=== PATIENT | female | born 1960 | race Caucasian/White ===

== ENCOUNTER → 2016-12-30 | Outpatient (CLI) | payer SELFPAY ==
[2013-04-18 12:20] VITALS: BP 149/60
--- NOTE | 2016-12-30 16:47 | MG ---
Examination: Bilateral screening mammogram. Clinical history: Routine screening. Technique: Digital CC and MLO views of both breasts were obtained. Computer aided detection analysis was performed and used during the interpretation. Comparison: 01/20/2015, 01/21/2014. Findings: The breasts are composed of scattered fibroglandular densities. No suspicious mass, area of architectural distortion or suspicious cluster of microcalcifications is noted. Impression: 1. No mammographic evidence of malignancy. BI-RADS category 1-negative. Recommend routine annual screening mammogram. Diagnostic CAD was utilized and reviewed. * 0 (ZERO) - ASSESSMENT INCOMPLETE; ADDITIONAL IMAGING IS NEEDED. * 0C - ASSESSMENT INCOMPLETE, NEEDS ADDITIONAL IMAGING EVALUATION AND/OR PRIOR MAMMOGRAMS FOR COMPARI SON. * 1/1 (ONE) - NEGATIVE. * 2/II (TWO) - BENIGN FINDINGS. * 3/III (THREE) - PROBABLY BENIGN FINDING; SHORT INTERVAL FOLLOW-UP SUGGESTED. * 4/IV (FOUR) - SUSPICIOUS ABNORMALITY; BIOPSY SHOULD BE CONSIDERED. * 5/V - HIGHLY SUSPICIOUS OF MALIGNANCY; BIOPSY SHOULD BE PERFORMED. * 6/IV - KNOWN BIOPSY PROVEN MALIGNANCY-APPROPRIATE ACTION SHOULD BE TAKEN. A NEGATIVE X-RAY REPORT SHOULD NOT DELAY BIOPSY IF A DOMINANT OR CLINICALLY SUSPICIOUS MASS IS PRESENT; 4 TO 8 PERCENT OF CANCERS ARE NOT IDENTIFIED BY X-RAY. A NEGATIVE REPORT MAY REINFORCE THE CLINICAL IMPRESSION. ADENOSIS AND DENSE BREASTS MAY OBSCURE AN UNDERLYING NEOPLASM. Reported By:
== END ==
LOC: RAD 10:52
PROVIDERS: ATTEND Specialist
DX: Z12.31 Encounter for screening mammogram for malignant neoplasm of breast (principal)
CPT/HCPCS: 77067

== ENCOUNTER 2020-01-18 10:05 | Inpatient (IN) ==
[2020-01-18 10:26] VITALS: BMI 41.0
[2020-01-18] MEDS ORDERED: NS 1000 ML 1,000 ML IV ONE (10:42)
[2020-01-18] MEDS ORDERED: ZOFRAN INJ 4 MG VIAL IVP ONE (10:42)
--- NOTE | 2020-01-18 10:42 | DR.GENAD ---
HPI Time Seen Time Seen by Provider: 01/18/20 10:37 PCP Primary Care Physician: BEBA CASH Complaint/Symptoms Chief Complaint Doctors Comments: PATIENT COMPLAINS OF ACUTE ONSET OF NONPRODUCTIVE COUGH X 4 DAYS, ONSET OF EMESIS X 3 EPISODES AT 2AM TODAY. HAS ASSOCIATED FEVER, CHILLS, GENERALIZED ACHES. HAS SLIGHT DYSURIA TODAY. DENIES CHEST PAIN, DYSPNEA, PALPITATIONS, DIAPHOREIS, ABDOMINAL PAIN, OR DIARRHEA. Chief Complaint:: STARTED HAVING N/V AT 0200 THIS MORNING. CONT TO HAVE NAUSEA AT PRESENT. STATES SHE HAS HAD A COUGH SINCE TUESDAY Self Treatment fo Chief Complaint: CALLED HER PHARMACIST AND GOT OTC N/V/COUGH MED, BUT IT DID NOT HELP HER FEEL BETTER COVID-19 Coronavirus risk:travel/contact w/high risk person: No Has patient experienced Coronavirus symptoms: Yes Coronavirus symptoms experienced: Fever and Coughing Source History Provided: Patient Mode of Arrival Mode of Arrival: Wheelchair Timing Onset of Chief Complaint: 01/17/20 PMH PMH Past Medical History: Yes Past Medical History: Hypertension Past Medical History Comment: "HORMONES" Past Surgical History: Yes Past Surgical History Comment: "LEFT KNEE SURGERY", "PLATES IN RIGHT ANKLE" Family History History of Family Medical Conditions: Yes Family Medical History: Hypertension Social History Does patient currently use any type of tobacco product: No Type of Tobacco Use: None Does any household member use tobacco: No Alcohol Use: None Do you use any recreational Drugs:: No Lives With: Spouse Lives Where: Home Travel Risk Coronavirus risk:travel/contact w/high risk person: No Has patient experienced Coronavirus symptoms: Yes Coronavirus symptoms experienced: Fever and Coughing Infectious screening In the last 2 months have you had wt loss of >10#?: NO Have you had fever, night sweats or hemotysis?: No Have you traveled outside the country in the last 6 months?: No Isolation: Droplet ROS Review of Systems Constitutional: Chills, Fever and Malaise Respiratoy: Non-Productive Cough and Dry Cough Gastrointestinal/Abdominal: Nausea and Vomiting (X 3 EPISODES) Genitourinary: Dysuria PE Vital Signs Vitals: Temperature 99.5 F Pulse Rate 92 Respiratory Rate 33 Blood Pressure [Right Arm] 149/60 Blood Pressure 172/77 O2 Sat by Pulse Oximetry 94 General Limitations: No Limitations General Appearance: Alert and In No Apparent Distress Head Head Exam: Normal Inspection Eyes Eye exam: Normal Appearance ENT ENT Exam: Normal Exam Chest Chest Inspection: Normal Inspection and Symmetric Chest Wall Rise Respiratory Respiratory Exam: Normal Lung Sounds Bilat (moderate tachypnea upon arrival, no accessory muscle use, labored breathing, audible wheezes) Respiratory Exam: Bilateral: Clear to Auscultation Cardiovascular Cardiovascular Exam: Regular Rate and Tachycardia Abdominal Exam Abdominal Exam: Normal Inspection, Normal Bowel Sounds and Soft Abdominal Tenderness: RUQ Extremities Extremities Exam: Normal Inspection Back Back Exam: Normal Inspection and Full ROM Neurologic Neurological Exam: Alert, Oriented X3 and CN II-XII Intact Psychiatric Psychiatric Exam: Normal Affect and Normal Mood Skin Skin Exam: Warm and Dry COURSE Consultation Called: 12:23 Call Returned: 12:25 Consultation Comments: DISCUSSED WITH DR AVINA AT 1225 FOR INPATIENT ADMIT Education/Counseling Education/Counseling: Counseling (FOR INPATIENT TREATMENT OF COVID PNEUMONIA) ROR Labs Reviewed Result Diagrams: 01/18/20 10:52 01/18/20 10:52 Laboratory: WBC 10.9 X10^3/uL (3.6-10.0) H 01/18/20 10:52 RBC 4.56 X10^6/uL (3.5-5.4) 01/18/20 10:52 Hgb 13.3 g/dL (12.0-16.0) 01/18/20 10:52 Hct 40.5 % (36.0-47.0) 01/18/20 10:52 MCV 88.7 fL (80.0-100.0) 01/18/20 10:52 MCH 29.1 pg (27.0-34.0) 01/18/20 10:52 MCHC 32.8 g/dL (33.0-35.0) L 01/18/20 10:52 RDW 13.8 % (11.6-16.5) 01/18/20 10:52 Plt Count 213 X10^3/uL (150.0-450.0) 01/18/20 10:52 MPV 10.1 fL (7.4-11.0) 01/18/20 10:52 Neut % (Auto) 87.6 % (42.0-75.0) H 01/18/20 10:52 Lymph % (Auto) 4.9 % (21.0-51.0) L 01/18/20 10:52 [place] % (Auto) 7.1 % (0.0-13.0) 01/18/20 10:52 Eos % (Auto) 0.0 % (0.9-2.9) L 01/18/20 10:52 Baso % (Auto) 0.4 % (0.2-1.0) 01/18/20 10:52 Neut # (Auto) 9.6 x10^3/uL (2.2-4.8) H 01/18/20 10:52 Lymph # (Auto) 0.5 X10^3/uL (1.3-2.9) L 01/18/20 10:52 [place] # (Auto) 0.8 x10^3/uL (0.3-0.8) 01/18/20 10:52 Eos # (Auto) 0.0 x10^3/uL (0.0-0.2) 01/18/20 10:52 Baso # (Auto) 0.0 X10^3/uL (0.0-0.1) 01/18/20 10:52 Absolute Nucleated RBC 0.0 /100WBC 01/18/20 10:52 Sodium 138 mmol/L (136-145) 01/18/20 10:52 Corrected Sodium TNP 01/18/20 10:52 Potassium 3.5 mmol/L (3.5-5.1) 01/18/20 10:52 Chloride 104 mmol/L (98-107) 01/18/20 10:52 Carbon Dioxide 25.2 mmol/L (21-32) 01/18/20 10:52 BUN 10 mg/dL (7-18) 01/18/20 10:52 Creatinine 0.66 mg/dL (0.55-1.02) 01/18/20 10:52 Est GFR (MDRD) Af Amer > 60 (>60) 01/18/20 10:52 Est GFR (MDRD) Non-Af > 60 (>60) 01/18/20 10:52 Glucose 98 mg/dL (65-99) 01/18/20 10:52 Calcium 8.3 mg/dL (8.5-10.1) L 01/18/20 10:52 Corrected Calcium 9.3 mg/dL (8.5-10.1) 01/18/20 10:52 Total Bilirubin 0.40 mg/dL (0.2-1.0) 01/18/20 10:52 AST 47 Units/L (15-37) H 01/18/20 10:52 ALT 73 Units/L (12-78) 01/18/20 10:52 Alkaline Phosphatase 114 Units/L (46-116) 01/18/20 10:52 Total Protein 6.3 g/dL (6.4-8.2) L 01/18/20 10:52 Albumin 2.8 g/dL (3.4-5.0) L 01/18/20 10:52 Globulin 3.5 g/dL (2.5-4.5) 01/18/20 10:52 Albumin/Globulin Ratio 0.8 Ratio (1.1-2.1) L 01/18/20 10:52 Influenza Type A (PCR) Negative (NEGATIVE) 01/18/20 10:56 Influenza Type B (PCR) Negative (NEGATIVE) 01/18/20 10:56 SARS CoV-2 RNA Rapid NATY Positive (NEGATIVE) A 01/18/20 10:56 XRAY XRAY Interpreted by: Radiologist X-ray Results: HISTORY COUGH, FEVER, NAUSEA, VOMITING STUDY CHEST, 1 VIEW COMPARISON None FINDINGS The trachea is midline. The cardiac silhouette is unremarkable. Patchy bila teral airspace opacities. The bony thorax is unremarkable. IMPRESSION Patchy bilateral airspace opacities concerning for pneumonia. Recommend follow- up to resolution. Electronically signed by: OSIEL SMITH (Jan 18, 2020 11:12:02) Opioid Opioid Risk Tool Age (Lokesh box if 16-45): No History of Preadolescent Sexual Abuse: No Total: 0 Total Score Risk Category: Low Risk Copyright: Rocky ROBERTO predicting aberrant behaviors Instructions Forms: Precautions for COVID19 Patient Portal Social Distancing
[2020-01-18] MEDS ORDERED: NS 1000 ML 1,000 ML ONE (10:55)
[2020-01-18] MEDS ORDERED: ZOFRAN INJ 4 MG VIAL ONE (10:55)
--- NOTE | 2020-01-18 11:13 | RAD ---
HISTORYCOUGH, FEVER, NAUSEA, VOMITINGSTUDYCHEST, 1 VIEWCOMPARISONNoneFINDINGSThe trachea is midline. The cardiac silhouette is unremarkable. Patchy bilateral airspace opacities. The bony thorax is unremarkable.IMPRESSIONPatchy bilateral airspace opacities concerning for pneumonia. Recommend follow-up to resolution.Electronically signed by: OSIEL SMITH (Jan 18, 2020 11:12:02)
[2020-01-18 11:33] LABS: BASOPHILS % (AUTO) 0.4 % (0.2-1.0); HEMATOCRIT 40.5 % (36.0-47.0); HEMOGLOBIN 13.3 g/dL (12.0-16.0); LYMPHOCYTES # (AUTO) 0.5 X10^3/uL (1.3-2.9); LYMPHOCYTES % (AUTO) 4.9 % (21.0-51.0); MEAN CORPUSCULAR HEMOGLOBIN 29.1 pg (27.0-34.0); MEAN CORPUSCULAR HGB CONC 32.8 g/dL (33.0-35.0); MEAN CORPUSCULAR VOLUME 88.7 fL (80.0-100.0); MEAN PLATELET VOLUME 10.1 fL (7.4-11.0); MONOCYTES # (AUTO) 0.8 x10^3/uL (0.3-0.8); MONOCYTES % (AUTO) 7.1 % (0.0-13.0); NEUTROPHILS # (AUTO) 9.6 x10^3/uL (2.2-4.8); NEUTROPHILS % (AUTO) 87.6 % (42.0-75.0); PLATELET COUNT 213 X10^3/uL (150.0-450.0); RED BLOOD COUNT 4.56 X10^6/uL (3.5-5.4); RED CELL DISTRIBUTION WIDTH 13.8 % (11.6-16.5); WHITE BLOOD COUNT 10.9 X10^3/uL (3.6-10.0)
[2020-01-18 11:52] LABS: ALANINE AMINOTRANSFERASE 73 Units/L (12-78); ALBUMIN 2.8 g/dL (3.4-5.0); ALKALINE PHOSPHATASE 114 Units/L (46-116); ASPARTATE AMINO TRANSFERASE 47 Units/L (15-37); BLOOD UREA NITROGEN 10 mg/dL (7-18); CALCIUM 8.3 mg/dL (8.5-10.1); CARBON DIOXIDE 25.2 mmol/L (21-32); CHLORIDE 104 mmol/L (98-107); COR CA(FOR HYPOALB) 9.3 mg/dL (8.5-10.1); CREATININE 0.66 mg/dL (0.55-1.02); SODIUM 138 mmol/L (136-145); TOTAL PROTEIN 6.3 g/dL (6.4-8.2); eGFR NON BLACK RACES > 60 (>60)
[2020-01-18] MEDS ORDERED: ZITHROMAX INJ 500 MG VIAL 500 MG in D5W 250 ML IV 250 ML IV ONE (12:12)
[2020-01-18] MEDS ORDERED: ZITHROMAX INJ 500 MG VIAL IV ONE (12:15)
[2020-01-18] MEDS ORDERED: LABETALOL HCL IVP ONE (12:17)
[2020-01-18] MEDS ORDERED: NORMODYNE INJ 20 MG VIAL ONE (12:38)
[2020-01-18] MEDS ORDERED: REMDESIVIR 200 MG in NS 250 ML IV 250 ML IV SCH ×2 (12:46→17:00)
[2020-01-18 12:59] LABS: ABG ALLEN TEST POS; ABG BASE EXCESS 0.3 mmol/L (-2.0-2.0); ABG HCO3 23.1 mmol/L (22-26)
[2020-01-18] MEDS ORDERED: ZITHROMAX INJ 500 MG VIAL 500 MG in D5W 250 ML IV 250 ML IV SCH (14:20)
[2020-01-18] MEDS ORDERED: ZOSYN VIAL 3.375 GRAMS 3.375 G in NS 100 ML IV + SPIKE MINIBAG* 100 ML IV SCH (14:25)
[2020-01-18] MEDS: NS 1000 ML 1,000 ML IV SCH (15:24)
[2020-01-18] MEDS ORDERED: PROVENTIL NEB TX 0.083% 2.5MG/ 3ML NEB PRN (16:18)
[2020-01-18] MEDS: ZOSYN VIAL 3.375 GRAMS 3.375 G in NS 50 ML IV + SPIKE MINIBAG* 50 ML IV SCH ×2 (16:19→22:14)
[2020-01-18] MEDS ORDERED: REMDESIVIR IV ONE ×2 (16:23→16:32)
[2020-01-18] MEDS ORDERED: NS 250 ML IV 250 ML IV ONE (16:25)
[2020-01-18] MEDS: ASCORBIC ACID INJ MULTI-DOSE VIAL 1,500 MG in NS 100 ML IV 100 ML IV SCH ×2 (16:38→20:34)
[2020-01-18] MEDS: REQUIP PO SCH ×2 (16:38→22:13)
[2020-01-18] MEDS ORDERED: DUONEB 0.5 MG/3 MG (3 mL) NEB ONE (16:57)
[2020-01-18] MEDS: DUONEB 0.5 MG/3 MG (3 mL) NEB SCH ×2 (17:09→21:33)
[2020-01-18 17:15] LABS: RSV AG DETECTION NEGATIVE (NEGATIVE)
[2020-01-18] MEDS ORDERED: NEURONTIN CAP 300 MG ONE (20:01)
[2020-01-18] MEDS ORDERED: LOPRESSOR TAB 50 MG ONE (20:01)
[2020-01-18] MEDS ORDERED: COZAAR ONE (20:01)
[2020-01-18] MEDS ORDERED: MICRO K EXTEN CAP 10 MEQ PO ONE (20:01)
[2020-01-18] MEDS ORDERED: ZINC SULFATE ONE (20:01)
[2020-01-18] MEDS ORDERED: SOLU-Medrol 40 MG VIAL ONE (20:02)
[2020-01-18] MEDS ORDERED: REMERON ONE (20:02)
[2020-01-18] MEDS ORDERED: LOVENOX INJ 30 MG SYR SC ONE (20:03)
[2020-01-18] MEDS: COZAAR PO SCH (20:29)
[2020-01-18] MEDS: LOPRESSOR TAB 50 MG PO SCH (20:30)
[2020-01-18] MEDS: MICRO K EXTEN CAP 10 MEQ PO SCH (20:31)
[2020-01-18] MEDS: NEURONTIN CAP 300 MG PO SCH (20:31)
[2020-01-18] MEDS: REMERON PO SCH (20:32)
[2020-01-18] MEDS: ZINC SULFATE PO SCH (20:32)
[2020-01-18] MEDS: LOVENOX INJ 30 MG SYR SC SCH (20:33)
[2020-01-18] MEDS: PULMICORT NEB TX 0.5 MG NEB SCH (21:33)
[2020-01-18] MEDS ORDERED: TYLENOL 325 MG TAB PO PRN (22:06)
--- NOTE | 2020-01-18 22:09 | DR.H&P ---
H&P History & Physical for Day of: H&P Date: 01/19/20 Chief Complaint Chief Complaint: Fever Shortness of breath Allergies Allergies Allergy/AdvReac Type Severity Reaction Status Date / Time No Known Drug Allergies Allergy Verified 01/18/20 13:08 History of Present Illness History of Present Illness: Pt is a 59 y/o f pmhx HTN admitted after having fever, fatigue, and shortness of breath for the past 2-3 days that has been gradually worsening. In the ED, she was found to be COVID-19 positive. Labs/imaging: Wbc 10.9, Hgb 13.3, Plt 213, Na 145, K 3.7, Cr 0.73, Glucose 149, AB.48/31/55/23/91% on RA. CRP 149.2, UA negative, Flu negative, COVID19 positive(01/17) CXR: Patchy bilateral airspace opacities concerning for pneumonia. Recommend follow-up to resolution. Will start patient on Remdesivir, Zosyn, Solumedrol 80mg Q8h, Bronchodilators, supplemental O2, IVF, I/S, RT support, pneumonia protocol. Resume home medications, continue to monitor and follow up labs/imaging in the morning. Past Medical History Past Medical History: Hypertension Family History Family Medical History: Diabetes Mellitus, Cancer, ID and Hypertension Social History Does patient currently use any type of tobacco product: No Have you used tobacco products in the last 12 months: No Type of Tobacco Use: None Does any household member use tobacco: No Alcohol Use: None Drug Use: None Medications Home Medications: No Known Drug Allergies Allergy (Verified 01/18/20 13:08) CONTINUE taking the following medications cyclobenzaprine 10 mg PO BID PRN 01/18/20 [History] diclofenac sodium 75 mg PO BID 01/18/20 [History] ibuprofen 800 mg PO DAILY PRN 01/18/20 [History] mirtazapine 7.5 mg PO HS 01/18/20 [History] oxybutynin chloride 5 mg PO HS 01/18/20 [History] ropinirole 0.5 mg PO TID 01/18/20 [History] Labs Result Diagrams: 01/19/20 04:35 01/19/20 04:35 Labs: Laboratory WBC 10.9 X10^3/uL (3.6-10.0) H 01/18/20 10:52 RBC 4.56 X10^6/uL (3.5-5.4) 01/18/20 10:52 Hgb 13.3 g/dL (12.0-16.0) 01/18/20 10:52 Hct 40.5 % (36.0-47.0) 01/18/20 10:52 MCV 88.7 fL (80.0-100.0) 01/18/20 10:52 MCH 29.1 pg (27.0-34.0) 01/18/20 10:52 MCHC 32.8 g/dL (33.0-35.0) L 01/18/20 10:52 RDW 13.8 % (11.6-16.5) 01/18/20 10:52 Plt Count 213 X10^3/uL (150.0-450.0) 01/18/20 10:52 MPV 10.1 fL (7.4-11.0) 01/18/20 10:52 Neut % (Auto) 87.6 % (42.0-75.0) H 01/18/20 10:52 Lymph % (Auto) 4.9 % (21.0-51.0) L 01/18/20 10:52 [place] % (Auto) 7.1 % (0.0-13.0) 01/18/20 10:52 Eos % (Auto) 0.0 % (0.9-2.9) L 01/18/20 10:52 Baso % (Auto) 0.4 % (0.2-1.0) 01/18/20 10:52 Neut # (Auto) 9.6 x10^3/uL (2.2-4.8) H 01/18/20 10:52 Lymph # (Auto) 0.5 X10^3/uL (1.3-2.9) L 01/18/20 10:52 [place] # (Auto) 0.8 x10^3/uL (0.3-0.8) 01/18/20 10:52 Eos # (Auto) 0.0 x10^3/uL (0.0-0.2) 01/18/20 10:52 Baso # (Auto) 0.0 X10^3/uL (0.0-0.1) 01/18/20 10:52 Absolute Nucleated RBC 0.0 /100WBC 01/18/20 10:52 PT 12.7 SECONDS (11.8-14.3) 01/18/20 12:51 INR Target Range - 01/18/20 12:51 INR 0.98 (0.8-1.3) 01/18/20 12:51 Sample Site Right radial 01/18/20 12:51 ABG pH 7.480 (7.35-7.45) H 01/18/20 12:51 ABG pCO2 31.0 mmHg (35.0-45.0) L 01/18/20 12:51 ABG pO2 55.0 mmHg (80.0-100.0) L 01/18/20 12:51 ABG HCO3 23.1 mmol/L (22-26) 01/18/20 12:51 ABG O2 Saturation 91.0 % (90-100) 01/18/20 12:51 ABG Base Excess 0.3 mmol/L (-2.0-2.0) 01/18/20 12:51 Test Pos 01/18/20 12:51 A-a Gradient 56.0 mmHg 01/18/20 12:51 FiO2 21.0 01/18/20 12:51 Blood Gas Comments Adam well aw 01/18/20 12:51 Sodium 138 mmol/L (136-145) 01/18/20 10:52 Corrected Sodium TNP 01/18/20 10:52 Potassium 3.5 mmol/L (3.5-5.1) 01/18/20 10:52 Chloride 104 mmol/L (98-107) 01/18/20 10:52 Carbon Dioxide 25.2 mmol/L (21-32) 01/18/20 10:52 BUN 10 mg/dL (7-18) 01/18/20 10:52 Creatinine 0.66 mg/dL (0.55-1.02) 01/18/20 10:52 Est GFR (MDRD) Af Amer > 60 (>60) 01/18/20 10:52 Est GFR (MDRD) Non-Af > 60 (>60) 01/18/20 10:52 Glucose 98 mg/dL (65-99) 01/18/20 10:52 Calcium 8.3 mg/dL (8.5-10.1) L 01/18/20 10:52 Corrected Calcium 9.3 mg/dL (8.5-10.1) 01/18/20 10:52 Total Bilirubin 0.40 mg/dL (0.2-1.0) 01/18/20 10:52 AST 47 Units/L (15-37) H 01/18/20 10:52 ALT 73 Units/L (12-78) 01/18/20 10:52 Alkaline Phosphatase 114 Units/L (46-116) 01/18/20 10:52 Troponin I < 0.02 ng/mL (0-1.5) 01/18/20 12:51 C-Reactive Protein 149.20 mg/L (0-3.0) H 01/18/20 12:51 Total Protein 6.3 g/dL (6.4-8.2) L 01/18/20 10:52 Albumin 2.8 g/dL (3.4-5.0) L 01/18/20 10:52 Globulin 3.5 g/dL (2.5-4.5) 01/18/20 10:52 Albumin/Globulin Ratio 0.8 Ratio (1.1-2.1) L 01/18/20 10:52 RSV Nasal Swab Negative (NEGATIVE) 01/18/20 16:30 Influenza Type A (PCR) Negative (NEGATIVE) 01/18/20 10:56 Influenza Type B (PCR) Negative (NEGATIVE) 01/18/20 10:56 SARS CoV-2 RNA Rapid NATY Positive (NEGATIVE) A 01/18/20 10:56 Review of Systems Constitutional: Fever, Chills and Weakness Eyes: No Symptoms Reported ENT: No Symptoms Reported Respiratory: Cough, Shortness of Breath and Wheezing Cardiovascular: No Symptoms Reported Gastrointestinal: No Symptoms Reported Genitourinary: No Symptoms Reported Musculoskeletal: No Symptoms Reported Skin: No Symptoms Reported Neurological: No Symptoms Reported Physical Exam Vital Signs: Temperature 100.2 F Pulse Rate 83 Respiratory Rate 23 Blood Pressure [Right Arm] 149/60 Blood Pressure 132/58 O2 Sat by Pulse Oximetry 95 Oriented: Normal Eyes: Normal Ear: Normal Nose: Normal Throat: Normal Respiratory: Diminished Throughout and Rales Throughout Cardiovascular: Normal : Normal Auscultation: Bowel Sounds: Normal Palpation: Normal Tenderness: Normal Skin: Normal Musculoskeletal: Normal Psychiatric: Normal Mood Description: Calm and Appropriate Affect: Normal Speech Pattern: Clear and Appropriate Assessment/Plan (1) Pneumonia due to COVID-19 virus: Status: Acute Plan: Remdesivir, Zosyn, Solumedrol, Bronchodilators, Supplemental O2. (2) Hypertension: Status: Chronic Review H&P Reviewed: Yes Patient was examined?: Yes
[2020-01-18] MEDS: SOLU-Medrol 125 MG VIAL IVP SCH (22:13)
[2020-01-19 01:01] LABS: BILIRUBIN,URINE NEGATIVE (NEGATIVE); BLOOD/HEMOGLOBIN,URINE NEGATIVE (NEGATIVE); GLUCOSE, URINE NEGATIVE (NEGATIVE); KETONES,URINE 2+ (NEGATIVE); LEUKOCYTE ESTERASE ,URINE NEGATIVE (NEGATIVE); NITRITES,URINE NEGATIVE (NEGATIVE); PROTEIN,URINE NEGATIVE (NEGATIVE); UROBILINOGEN,URINE NORMAL (NORMAL)
[2020-01-19 01:04] LABS: APPEARANCE,URINE CLEAR (CLEAR); COLOR,URINE YELLOW (YELLOW)
[2020-01-19] MEDS: ASCORBIC ACID INJ MULTI-DOSE VIAL 1,500 MG in NS 100 ML IV 100 ML IV SCH ×4 (02:56→21:30)
--- NOTE | 2020-01-19 04:16 | RAD ---
HISTORYCOVID-19STUDYCHEST, 1 [id number]/04/2020FINDINGSThe trachea is midline. The cardiac silhouette is stable.. Patchy bilateral airspace opacities, unchanged. No pneumothorax.. The bony thorax is unremarkable.IMPRESSIONPatchy bilateral airspace opacities a suggesting multifocal pneumonia.No significant change from previous 01/18/2020.Electronically signed by: Hunter Peña (Jan 19, 2020 04:14:55)
[2020-01-19 05:16] LABS: BASOPHILS % (AUTO) 0.1 % (0.2-1.0); HEMATOCRIT 40.3 % (36.0-47.0); LYMPHOCYTES # (AUTO) 0.3 X10^3/uL (1.3-2.9); LYMPHOCYTES % (AUTO) 7.1 % (21.0-51.0); MEAN CORPUSCULAR HGB CONC 32.4 g/dL (33.0-35.0); MEAN CORPUSCULAR VOLUME 89.6 fL (80.0-100.0); MEAN PLATELET VOLUME 9.8 fL (7.4-11.0); MONOCYTES # (AUTO) 0.1 x10^3/uL (0.3-0.8); MONOCYTES % (AUTO) 2.2 % (0.0-13.0); NEUTROPHILS # (AUTO) 4.1 x10^3/uL (2.2-4.8); NEUTROPHILS % (AUTO) 90.6 % (42.0-75.0); PLATELET COUNT 207 X10^3/uL (150.0-450.0); RED CELL DISTRIBUTION WIDTH 13.6 % (11.6-16.5); WHITE BLOOD COUNT 4.6 X10^3/uL (3.6-10.0)
[2020-01-19 05:25] LABS: ALANINE AMINOTRANSFERASE 65 Units/L (12-78); ALBUMIN 2.3 g/dL (3.4-5.0); ALKALINE PHOSPHATASE 127 Units/L (46-116); ASPARTATE AMINO TRANSFERASE 40 Units/L (15-37); BLOOD UREA NITROGEN 11 mg/dL (7-18); CALCIUM 7.9 mg/dL (8.5-10.1); CARBON DIOXIDE 23.3 mmol/L (21-32); CHLORIDE 110 mmol/L (98-107); COR CA(FOR HYPOALB) 9.3 mg/dL (8.5-10.1); COR NA(FOR HYPERGLY) 146 mmol/L (136-145); CREATININE 0.73 mg/dL (0.55-1.02); SODIUM 145 mmol/L (136-145); TOTAL PROTEIN 5.7 g/dL (6.4-8.2); eGFR NON BLACK RACES > 60 (>60)
[2020-01-19] MEDS: ZOSYN VIAL 3.375 GRAMS 3.375 G in NS 50 ML IV + SPIKE MINIBAG* 50 ML IV SCH ×3 (05:29→22:19)
[2020-01-19] MEDS: REQUIP PO SCH ×3 (05:29→21:30)
[2020-01-19] MEDS: SOLU-Medrol 125 MG VIAL IVP SCH ×3 (05:29→21:30)
[2020-01-19 05:43] LABS: BAND NEUTROPHILS % 2 % (0-10)
[2020-01-19 05:44] LABS: PLATELET MORPHOLOGY COMMENT NORMAL (NORMAL)
[2020-01-19] MEDS ORDERED: DECADRON TAB PO SCH (09:00)
[2020-01-19] MEDS ORDERED: VITAMIN D (1.25MG) PO SCH (09:00)
[2020-01-19] MEDS ORDERED: VITAMIN A PO SCH (09:00)
[2020-01-19] MEDS ORDERED: ZITHROMAX INJ 500 MG VIAL 250 MG in D5W 250 ML IV 250 ML IV SCH (09:00)
[2020-01-19] MEDS: DUONEB 0.5 MG/3 MG (3 mL) NEB SCH ×4 (09:05→21:33)
[2020-01-19] MEDS: PULMICORT NEB TX 0.5 MG NEB SCH ×2 (09:05→21:33)
[2020-01-19] MEDS: CELEXA PO SCH (09:06)
[2020-01-19] MEDS: COZAAR PO SCH ×2 (09:07→21:30)
[2020-01-19] MEDS: ESTRACE PO SCH (09:07)
[2020-01-19] MEDS: LOVENOX INJ 30 MG SYR SC SCH ×2 (09:08→21:30)
[2020-01-19] MEDS: LOPRESSOR TAB 50 MG PO SCH ×2 (09:08→21:30)
[2020-01-19] MEDS: PriLOSEC PO SCH (09:09)
[2020-01-19] MEDS: MICRO K EXTEN CAP 10 MEQ PO SCH ×2 (09:09→21:30)
[2020-01-19] MEDS: NORVASC TAB 10 MG PO SCH (09:09)
[2020-01-19] MEDS: REMDESIVIR 100 MG in NS 250 ML IV 250 ML IV SCH (09:10)
[2020-01-19] MEDS: ZINC SULFATE PO SCH ×2 (09:10→21:30)
[2020-01-19] MEDS: TRICOR TAB 160 MG PO SCH (09:10)
[2020-01-19] MEDS: PROVERA PO SCH (09:36)
[2020-01-19] MEDS ORDERED: ROBITUSSIN DM ONE (10:12)
[2020-01-19] MEDS ORDERED: ZOFRAN INJ 4 MG VIAL IVP PRN (10:25)
--- NOTE | 2020-01-19 10:57 | PCM.PROG ---
Progress Note Progress Note for Day of Date of Exam: 01/19/20 Subjective Subjective: Pt is a 59 y/o f pmhx HTN admitted for COVID-19 pneumonia (positive on 01/17). She reports feeling a little better this morning, still having a lot of cough that causes her to be short of breath. Labs/imaging: Wbc 4.6, Hgb 13, Plt 207, Na 145, K 3.7, Cr 0.73, Glucose 149, CRP 149>179. CXR: Patchy bilateral airspace opacities a suggesting multifocal pneumonia. Treatment course includes: Remdesivir, Zosyn, Solumedrol 80mg Q8h, Bronchodilators, supplemental O2, IVF, I/S, RT support, pneumonia protocol. She is currently on 2L nc. Will order convalescent plasma. Continue treatment plan, monitor and follow up labs/imaging in the morning. Past Medical Family Social History Past Med/Fam/Surg Hx: No changes since H&P Allergies: Allergies No Known Drug Allergies Allergy (Verified 01/18/20 13:08) Review of Systems ROS: No change since H&P Vital Signs and I&O's Vital Signs: Temperature 97.5 F Pulse Rate 86 Respiratory Rate 25 Blood Pressure [Right Arm] 149/60 Blood Pressure 147/67 O2 Sat by Pulse Oximetry 96 Intake and Output: Intake & Output 01/16/20 01/17/20 01/18/20 01/19/20 23:59 23:59 23:59 23:59 Intake Total 1444 / 1444 447 / 447 Output Total 500 / 500 Balance 1444 / 1444 -53 / -53 Physical Exam Oriented: Normal Eyes: Normal Ear: Normal Nose: Normal Throat: Normal Respiratory: Diminished Cardiovascular: Normal : Normal Auscultation: Bowel Sounds: Normal Tenderness: Normal Skin: Normal Musculoskeletal: Normal Psychiatric: Normal Mood Description: Calm and Appropriate Affect: Normal Speech Pattern: Clear and Appropriate Laboratory and Diagnostics Result Diagrams: 01/19/20 04:35 01/19/20 04:35 Labs: Laboratory WBC 4.6 X10^3/uL (3.6-10.0) 01/19/20 04:35 RBC 4.50 X10^6/uL (3.5-5.4) 01/19/20 04:35 Hgb 13.0 g/dL (12.0-16.0) 01/19/20 04:35 Hct 40.3 % (36.0-47.0) 01/19/20 04:35 MCV 89.6 fL (80.0-100.0) 01/19/20 04:35 MCH 29.0 pg (27.0-34.0) 01/19/20 04:35 MCHC 32.4 g/dL (33.0-35.0) L 01/19/20 04:35 RDW 13.6 % (11.6-16.5) 01/19/20 04:35 Plt Count 207 X10^3/uL (150.0-450.0) 01/19/20 04:35 Plt Count Comment Adequate (ADEQUATE) 01/19/20 04:35 MPV 9.8 fL (7.4-11.0) 01/19/20 04:35 Neut % (Auto) 90.6 % (42.0-75.0) H 01/19/20 04:35 Lymph % (Auto) 7.1 % (21.0-51.0) L 01/19/20 04:35 [place] % (Auto) 2.2 % (0.0-13.0) 01/19/20 04:35 Eos % (Auto) 0.0 % (0.9-2.9) L 01/19/20 04:35 Baso % (Auto) 0.1 % (0.2-1.0) L 01/19/20 04:35 Neut # (Auto) 4.1 x10^3/uL (2.2-4.8) 01/19/20 04:35 Lymph # (Auto) 0.3 X10^3/uL (1.3-2.9) L 01/19/20 04:35 [place] # (Auto) 0.1 x10^3/uL (0.3-0.8) L 01/19/20 04:35 Eos # (Auto) 0.0 x10^3/uL (0.0-0.2) 01/19/20 04:35 Baso # (Auto) 0.0 X10^3/uL (0.0-0.1) 01/19/20 04:35 Absolute Nucleated RBC 0.0 /100WBC 01/19/20 04:35 Total Counted 100 01/19/20 04:35 Neutrophils % (Manual) 89 % (39-76) H 01/19/20 04:35 Band Neutrophils % 2 % (0-10) 01/19/20 04:35 Lymphocytes % (Manual) 7 % (13-43) L 01/19/20 04:35 Monocytes % (Manual) 2 % (4-9) L 01/19/20 04:35 Plt Morphology Comment Normal (NORMAL) 01/19/20 04:35 RBC Morphology Normal (NORMAL) 01/19/20 04:35 PT 12.7 SECONDS (11.8-14.3) 01/18/20 12:51 INR Target Range - 01/18/20 12:51 INR 0.98 (0.8-1.3) 01/18/20 12:51 Sample Site Right radial 01/18/20 12:51 ABG pH 7.480 (7.35-7.45) H 01/18/20 12:51 ABG pCO2 31.0 mmHg (35.0-45.0) L 01/18/20 12:51 ABG pO2 55.0 mmHg (80.0-100.0) L 01/18/20 12:51 ABG HCO3 23.1 mmol/L (22-26) 01/18/20 12:51 ABG O2 Saturation 91.0 % (90-100) 01/18/20 12:51 ABG Base Excess 0.3 mmol/L (-2.0-2.0) 01/18/20 12:51 Test Pos 01/18/20 12:51 A-a Gradient 56.0 mmHg 01/18/20 12:51 FiO2 21.0 01/18/20 12:51 Blood Gas Comments Adam well aw 01/18/20 12:51 Sodium 145 mmol/L (136-145) 01/19/20 04:35 Corrected Sodium 146 mmol/L (136-145) H 01/19/20 04:35 Potassium 3.7 mmol/L (3.5-5.1) 01/19/20 04:35 Chloride 110 mmol/L (98-107) H 01/19/20 04:35 Carbon Dioxide 23.3 mmol/L (21-32) 01/19/20 04:35 BUN 11 mg/dL (7-18) 01/19/20 04:35 Creatinine 0.73 mg/dL (0.55-1.02) 01/19/20 04:35 Est GFR (MDRD) Af Amer > 60 (>60) 01/19/20 04:35 Est GFR (MDRD) Non-Af > 60 (>60) 01/19/20 04:35 Glucose 149 mg/dL (65-99) H 01/19/20 04:35 Calcium 7.9 mg/dL (8.5-10.1) L 01/19/20 04:35 Corrected Calcium 9.3 mg/dL (8.5-10.1) 01/19/20 04:35 Total Bilirubin 0.30 mg/dL (0.2-1.0) 01/19/20 04:35 AST 40 Units/L (15-37) H 01/19/20 04:35 ALT 65 Units/L (12-78) 01/19/20 04:35 Alkaline Phosphatase 127 Units/L (46-116) H 01/19/20 04:35 Troponin I < 0.02 ng/mL (0-1.5) 01/18/20 12:51 C-Reactive Protein 179.40 mg/L (0-3.0) H 01/19/20 04:35 Total Protein 5.7 g/dL (6.4-8.2) L 01/19/20 04:35 Albumin 2.3 g/dL (3.4-5.0) L 01/19/20 04:35 Globulin 3.4 g/dL (2.5-4.5) 01/19/20 04:35 Albumin/Globulin Ratio 0.7 Ratio (1.1-2.1) L 01/19/20 04:35 Specimen Type Clean catch urine 01/19/20 00:46 Urine Color Yellow (YELLOW) 01/19/20 00:46 Urine Appearance Clear (CLEAR) 01/19/20 00:46 Urine pH 5.0 (5.0 - 8.0) 01/19/20 00:46 Ur Specific [place] 1.010 (1.000-1.030) 01/19/20 00:46 Urine Protein Negative (NEGATIVE) 01/19/20 00:46 Urine Glucose (UA) Negative (NEGATIVE) 01/19/20 00:46 Urine Ketones 2+ (NEGATIVE) 01/19/20 00:46 Urine Occult Blood Negative (NEGATIVE) 01/19/20 00:46 Urine Nitrite Negative (NEGATIVE) 01/19/20 00:46 Urine Bilirubin Negative (NEGATIVE) 01/19/20 00:46 Urine Urobilinogen Normal (NORMAL) 01/19/20 00:46 Ur Leukocyte Esterase Negative (NEGATIVE) 01/19/20 00:46 RSV Nasal Swab Negative (NEGATIVE) 01/18/20 16:30 Influenza Type A (PCR) Negative (NEGATIVE) 01/18/20 10:56 Influenza Type B (PCR) Negative (NEGATIVE) 01/18/20 10:56 SARS CoV-2 RNA Rapid NATY Positive (NEGATIVE) A 01/18/20 10:56 Plan (1) Pneumonia due to COVID-19 virus: Status: Acute Plan: Remdesivir, Zosyn, Solumedrol, Bronchodilators, Supplemental O2. (2) Hypertension: Status: Chronic
[2020-01-19] MEDS: NS 1000 ML 1,000 ML IV SCH (14:29)
[2020-01-19] MEDS: NEURONTIN CAP 300 MG PO SCH (21:30)
[2020-01-19] MEDS: REMERON PO SCH (21:30)
[2020-01-20] MEDS: ASCORBIC ACID INJ MULTI-DOSE VIAL 1,500 MG in NS 100 ML IV 100 ML IV SCH ×4 (03:35→20:30)
[2020-01-20 05:29] LABS: BASOPHILS % (AUTO) 0.3 % (0.2-1.0); HEMATOCRIT 39.4 % (36.0-47.0); HEMOGLOBIN 13.1 g/dL (12.0-16.0); LYMPHOCYTES # (AUTO) 0.6 X10^3/uL (1.3-2.9); LYMPHOCYTES % (AUTO) 6.7 % (21.0-51.0); MEAN CORPUSCULAR HEMOGLOBIN 29.6 pg (27.0-34.0); MEAN CORPUSCULAR HGB CONC 33.3 g/dL (33.0-35.0); MEAN CORPUSCULAR VOLUME 89.1 fL (80.0-100.0); MEAN PLATELET VOLUME 9.8 fL (7.4-11.0); MONOCYTES # (AUTO) 0.4 x10^3/uL (0.3-0.8); MONOCYTES % (AUTO) 4.9 % (0.0-13.0); NEUTROPHILS # (AUTO) 7.8 x10^3/uL (2.2-4.8); NEUTROPHILS % (AUTO) 88.1 % (42.0-75.0); PLATELET COUNT 215 X10^3/uL (150.0-450.0); RED BLOOD COUNT 4.42 X10^6/uL (3.5-5.4); RED CELL DISTRIBUTION WIDTH 13.6 % (11.6-16.5); WHITE BLOOD COUNT 8.8 X10^3/uL (3.6-10.0)
[2020-01-20] MEDS: SOLU-Medrol 125 MG VIAL IVP SCH ×3 (05:35→22:08)
[2020-01-20] MEDS: REQUIP PO SCH ×3 (05:35→22:09)
[2020-01-20] MEDS: ZOSYN VIAL 3.375 GRAMS 3.375 G in NS 50 ML IV + SPIKE MINIBAG* 50 ML IV SCH ×3 (05:35→22:09)
[2020-01-20 05:59] LABS: ALANINE AMINOTRANSFERASE 49 Units/L (12-78); ALBUMIN 2.1 g/dL (3.4-5.0); ALKALINE PHOSPHATASE 108 Units/L (46-116); ASPARTATE AMINO TRANSFERASE 28 Units/L (15-37); BLOOD UREA NITROGEN 13 mg/dL (7-18); CALCIUM 8.1 mg/dL (8.5-10.1); CHLORIDE 113 mmol/L (98-107); COR CA(FOR HYPOALB) 9.6 mg/dL (8.5-10.1); COR NA(FOR HYPERGLY) 150 mmol/L (136-145); CREATININE 0.82 mg/dL (0.55-1.02); SODIUM 148 mmol/L (136-145); TOTAL PROTEIN 5.3 g/dL (6.4-8.2); eGFR NON BLACK RACES > 60 (>60)
[2020-01-20 06:02] LABS: CARBON DIOXIDE 26.2 mmol/L (21-32)
[2020-01-20] MEDS: DUONEB 0.5 MG/3 MG (3 mL) NEB SCH ×4 (08:30→21:15)
[2020-01-20] MEDS: PULMICORT NEB TX 0.5 MG NEB SCH ×2 (08:30→21:15)
[2020-01-20] MEDS: TRICOR TAB 160 MG PO SCH (09:04)
[2020-01-20] MEDS: MICRO K EXTEN CAP 10 MEQ PO SCH ×2 (09:06→20:30)
[2020-01-20] MEDS: CELEXA PO SCH (09:06)
[2020-01-20] MEDS: ZINC SULFATE PO SCH ×2 (09:07→20:30)
[2020-01-20] MEDS: LOPRESSOR TAB 50 MG PO SCH ×2 (09:07→20:30)
[2020-01-20] MEDS: NORVASC TAB 10 MG PO SCH (09:07)
[2020-01-20] MEDS: COZAAR PO SCH ×2 (09:08→20:30)
[2020-01-20] MEDS: PriLOSEC PO SCH (09:08)
[2020-01-20] MEDS: ESTRACE PO SCH (09:08)
[2020-01-20] MEDS: PROVERA PO SCH (09:09)
[2020-01-20] MEDS: LOVENOX INJ 30 MG SYR SC SCH ×2 (09:09→20:30)
[2020-01-20] MEDS: VITAMIN A PO SCH (09:10)
[2020-01-20] MEDS: REMDESIVIR 100 MG in NS 250 ML IV 250 ML IV SCH (09:10)
[2020-01-20] MEDS: VITAMIN D3 125 mcg (5,000 UNITS) PO SCH (09:11)
--- NOTE | 2020-01-20 11:32 | PCM.PROG ---
Progress Note Progress Note for Day of Date of Exam: 01/20/20 Subjective Subjective: Pt is a 59 y/o f pmhx HTN admitted for COVID-19 pneumonia (positive on 01/17). She states feeling some improvement this morning, no acute events overnight. Still having a lot of cough and cough syrup making her feel nauseous, will add tessalon pearles. Labs/imaging: Wbc 8.8, Hgb 13.1, Plt 215, Na 148, K 3.6, Cr 0.82, Glucose 201, CRP 179>76. CXR: Patchy bilateral airspace opacities a suggesting multifocal pneumonia. Treatment course includes: Remdesivir, Zosyn, Solumedrol 80mg Q8h, Bronchodilators, supplemental O2, IVF, I/S, RT support, pneumonia protocol. Pt currently requires 2L nc. Convalescent plasma ordered, awaiting arrival and transfusion. Continue treatment plan, monitor and follow up labs/imaging in the morning. Past Medical Family Social History Past Med/Fam/Surg Hx: No changes since H&P Allergies: Allergies No Known Drug Allergies Allergy (Verified 01/18/20 13:08) Review of Systems ROS: No change since H&P Vital Signs and I&O's Vital Signs: Temperature 97.6 F Pulse Rate 80 Respiratory Rate 26 Blood Pressure [Right Arm] 149/60 Blood Pressure 153/67 O2 Sat by Pulse Oximetry 94 Intake and Output: Intake & Output 01/17/20 01/18/20 01/19/20 01/20/20 23:59 23:59 23:59 23:59 Intake Total 1444 / 1444 2763 / 2763 270 / 270 Output Total 1800 / 1800 200 / 200 Balance 1444 / 1444 963 / 963 70 / 70 Physical Exam Oriented: Normal Eyes: Normal Ear: Normal Nose: Normal Throat: Normal Respiratory: Diminished Cardiovascular: Normal : Normal Auscultation: Bowel Sounds: Normal Tenderness: Normal Skin: Normal Musculoskeletal: Normal Psychiatric: Normal Mood Description: Calm and Appropriate Affect: Normal Speech Pattern: Clear and Appropriate Laboratory and Diagnostics Result Diagrams: 01/20/20 04:19 01/20/20 04:19 Labs: 01/18/20 10:52 Blood Blood Culture - Preliminary 01/18/20 10:52 Blood Blood Culture - Preliminary Laboratory WBC 8.8 X10^3/uL (3.6-10.0) 01/20/20 04:19 RBC 4.42 X10^6/uL (3.5-5.4) 01/20/20 04:19 Hgb 13.1 g/dL (12.0-16.0) 01/20/20 04:19 Hct 39.4 % (36.0-47.0) 01/20/20 04:19 MCV 89.1 fL (80.0-100.0) 01/20/20 04:19 MCH 29.6 pg (27.0-34.0) 01/20/20 04:19 MCHC 33.3 g/dL (33.0-35.0) 01/20/20 04:19 RDW 13.6 % (11.6-16.5) 01/20/20 04:19 Plt Count 215 X10^3/uL (150.0-450.0) 01/20/20 04:19 Plt Count Comment Adequate (ADEQUATE) 01/19/20 04:35 MPV 9.8 fL (7.4-11.0) 01/20/20 04:19 Neut % (Auto) 88.1 % (42.0-75.0) H 01/20/20 04:19 Lymph % (Auto) 6.7 % (21.0-51.0) L 01/20/20 04:19 [place] % (Auto) 4.9 % (0.0-13.0) 01/20/20 04:19 Eos % (Auto) 0.0 % (0.9-2.9) L 01/20/20 04:19 Baso % (Auto) 0.3 % (0.2-1.0) 01/20/20 04:19 Neut # (Auto) 7.8 x10^3/uL (2.2-4.8) H 01/20/20 04:19 Lymph # (Auto) 0.6 X10^3/uL (1.3-2.9) L 01/20/20 04:19 [place] # (Auto) 0.4 x10^3/uL (0.3-0.8) 01/20/20 04:19 Eos # (Auto) 0.0 x10^3/uL (0.0-0.2) 01/20/20 04:19 Baso # (Auto) 0.0 X10^3/uL (0.0-0.1) 01/20/20 04:19 Absolute Nucleated RBC 0.0 /100WBC 01/20/20 04:19 Total Counted 100 01/19/20 04:35 Neutrophils % (Manual) 89 % (39-76) H 01/19/20 04:35 Band Neutrophils % 2 % (0-10) 01/19/20 04:35 Lymphocytes % (Manual) 7 % (13-43) L 01/19/20 04:35 Monocytes % (Manual) 2 % (4-9) L 01/19/20 04:35 Plt Morphology Comment Normal (NORMAL) 01/19/20 04:35 RBC Morphology Normal (NORMAL) 01/19/20 04:35 PT 12.7 SECONDS (11.8-14.3) 01/18/20 12:51 INR Target Range - 01/18/20 12:51 INR 0.98 (0.8-1.3) 01/18/20 12:51 Sample Site Right radial 01/18/20 12:51 ABG pH 7.480 (7.35-7.45) H 01/18/20 12:51 ABG pCO2 31.0 mmHg (35.0-45.0) L 01/18/20 12:51 ABG pO2 55.0 mmHg (80.0-100.0) L 01/18/20 12:51 ABG HCO3 23.1 mmol/L (22-26) 01/18/20 12:51 ABG O2 Saturation 91.0 % (90-100) 01/18/20 12:51 ABG Base Excess 0.3 mmol/L (-2.0-2.0) 01/18/20 12:51 Test Pos 01/18/20 12:51 A-a Gradient 56.0 mmHg 01/18/20 12:51 FiO2 21.0 01/18/20 12:51 Blood Gas Comments Adam well aw 01/18/20 12:51 Sodium 148 mmol/L (136-145) H 01/20/20 04:19 Corrected Sodium 150 mmol/L (136-145) H 01/20/20 04:19 Potassium 3.6 mmol/L (3.5-5.1) 01/20/20 04:19 Chloride 113 mmol/L (98-107) H 01/20/20 04:19 Carbon Dioxide 26.2 mmol/L (21-32) 01/20/20 04:19 BUN 13 mg/dL (7-18) 01/20/20 04:19 Creatinine 0.82 mg/dL (0.55-1.02) 01/20/20 04:19 Est GFR (MDRD) Af Amer > 60 (>60) 01/20/20 04:19 Est GFR (MDRD) Non-Af > 60 (>60) 01/20/20 04:19 Glucose 201 mg/dL (65-99) H 01/20/20 04:19 Calcium 8.1 mg/dL (8.5-10.1) L 01/20/20 04:19 Corrected Calcium 9.6 mg/dL (8.5-10.1) 01/20/20 04:19 Total Bilirubin 0.20 mg/dL (0.2-1.0) 01/20/20 04:19 AST 28 Units/L (15-37) 01/20/20 04:19 ALT 49 Units/L (12-78) 01/20/20 04:19 Alkaline Phosphatase 108 Units/L (46-116) 01/20/20 04:19 Troponin I < 0.02 ng/mL (0-1.5) 01/18/20 12:51 C-Reactive Protein 76.90 mg/L (0-3.0) H 01/20/20 04:19 Total Protein 5.3 g/dL (6.4-8.2) L 01/20/20 04:19 Albumin 2.1 g/dL (3.4-5.0) L 01/20/20 04:19 Globulin 3.2 g/dL (2.5-4.5) 01/20/20 04:19 Albumin/Globulin Ratio 0.7 Ratio (1.1-2.1) L 01/20/20 04:19 Specimen Type Clean catch urine 01/19/20 00:46 Urine Color Yellow (YELLOW) 01/19/20 00:46 Urine Appearance Clear (CLEAR) 01/19/20 00:46 Urine pH 5.0 (5.0 - 8.0) 01/19/20 00:46 Ur Specific [place] 1.010 (1.000-1.030) 01/19/20 00:46 Urine Protein Negative (NEGATIVE) 01/19/20 00:46 Urine Glucose (UA) Negative (NEGATIVE) 01/19/20 00:46 Urine Ketones 2+ (NEGATIVE) 01/19/20 00:46 Urine Occult Blood Negative (NEGATIVE) 01/19/20 00:46 Urine Nitrite Negative (NEGATIVE) 01/19/20 00:46 Urine Bilirubin Negative (NEGATIVE) 01/19/20 00:46 Urine Urobilinogen Normal (NORMAL) 01/19/20 00:46 Ur Leukocyte Esterase Negative (NEGATIVE) 01/19/20 00:46 RSV Nasal Swab Negative (NEGATIVE) 01/18/20 16:30 Influenza Type A (PCR) Negative (NEGATIVE) 01/18/20 10:56 Influenza Type B (PCR) Negative (NEGATIVE) 01/18/20 10:56 SARS CoV-2 RNA Rapid NATY Positive (NEGATIVE) A 01/18/20 10:56 Blood Type A POSITIVE 01/19/20 11:02 Plan (1) Pneumonia due to COVID-19 virus: Status: Acute Plan: Remdesivir, Zosyn, Solumedrol, Bronchodilators, Supplemental O2. (2) Hypertension: Status: Chronic
[2020-01-20] MEDS: NS 1000 ML 1,000 ML IV SCH (14:25)
[2020-01-20] MEDS: NEURONTIN CAP 300 MG PO SCH (20:30)
[2020-01-20] MEDS: REMERON PO SCH (20:30)
[2020-01-20] MEDS: TESSALON PERLES PO PRN (20:30)
[2020-01-21] MEDS: ASCORBIC ACID INJ MULTI-DOSE VIAL 1,500 MG in NS 100 ML IV 100 ML IV SCH ×4 (02:32→20:40)
[2020-01-21] MEDS: REQUIP PO SCH ×3 (05:00→21:00)
[2020-01-21] MEDS: SOLU-Medrol 125 MG VIAL IVP SCH (05:00)
[2020-01-21] MEDS: ZOSYN VIAL 3.375 GRAMS 3.375 G in NS 50 ML IV + SPIKE MINIBAG* 50 ML IV SCH ×3 (05:00→21:45)
[2020-01-21] MEDS: TESSALON PERLES PO PRN ×2 (05:00→14:27)
[2020-01-21 05:23] LABS: BASOPHILS % (AUTO) 0.2 % (0.2-1.0); HEMATOCRIT 40.2 % (36.0-47.0); HEMOGLOBIN 13.2 g/dL (12.0-16.0); LYMPHOCYTES # (AUTO) 0.6 X10^3/uL (1.3-2.9); LYMPHOCYTES % (AUTO) 5.5 % (21.0-51.0); MEAN CORPUSCULAR HEMOGLOBIN 29.3 pg (27.0-34.0); MEAN CORPUSCULAR HGB CONC 32.8 g/dL (33.0-35.0); MEAN CORPUSCULAR VOLUME 89.3 fL (80.0-100.0); MEAN PLATELET VOLUME 9.9 fL (7.4-11.0); MONOCYTES # (AUTO) 0.6 x10^3/uL (0.3-0.8); MONOCYTES % (AUTO) 5.5 % (0.0-13.0); NEUTROPHILS # (AUTO) 9.6 x10^3/uL (2.2-4.8); NEUTROPHILS % (AUTO) 88.8 % (42.0-75.0); PLATELET COUNT 245 X10^3/uL (150.0-450.0); RED CELL DISTRIBUTION WIDTH 13.9 % (11.6-16.5); WHITE BLOOD COUNT 10.8 X10^3/uL (3.6-10.0)
[2020-01-21 05:37] LABS: ALANINE AMINOTRANSFERASE 44 Units/L (12-78); ALBUMIN 2.1 g/dL (3.4-5.0); ALKALINE PHOSPHATASE 96 Units/L (46-116); ASPARTATE AMINO TRANSFERASE 32 Units/L (15-37); BLOOD UREA NITROGEN 15 mg/dL (7-18); CALCIUM 7.9 mg/dL (8.5-10.1); CARBON DIOXIDE 27.3 mmol/L (21-32); CHLORIDE 113 mmol/L (98-107); COR CA(FOR HYPOALB) 9.4 mg/dL (8.5-10.1); COR NA(FOR HYPERGLY) 152 mmol/L (136-145); CREATININE 0.76 mg/dL (0.55-1.02); SODIUM 149 mmol/L (136-145); TOTAL PROTEIN 5.2 g/dL (6.4-8.2); eGFR NON BLACK RACES > 60 (>60)
--- NOTE | 2020-01-21 06:08 | RAD ---
HISTORYCOVID 19, PNEUMONIASTUDYCHEST, 1 [id number] trachea is midline. The cardiac silhouette is unremarkable. Patchy bilateral airspace opacities unchanged from prior study. No pleural effusion or pneumothorax.. The bony thorax is unremarkable.IMPRESSIONStable portable chestElectronically signed by: Hunter Peña (Jan 21, 2020 06:07:07)
[2020-01-21] MEDS: DUONEB 0.5 MG/3 MG (3 mL) NEB SCH ×4 (08:15→21:05)
[2020-01-21] MEDS: PULMICORT NEB TX 0.5 MG NEB SCH ×2 (08:15→21:05)
[2020-01-21] MEDS: PROVERA PO SCH (09:00)
[2020-01-21] MEDS: NORVASC TAB 10 MG PO SCH (09:00)
[2020-01-21] MEDS: REMDESIVIR 100 MG in NS 250 ML IV 250 ML IV SCH (09:00)
[2020-01-21] MEDS: MICRO K EXTEN CAP 10 MEQ PO SCH ×2 (09:00→20:45)
[2020-01-21] MEDS: VITAMIN A PO SCH (09:00)
[2020-01-21] MEDS: CELEXA PO SCH (09:00)
[2020-01-21] MEDS: ZINC SULFATE PO SCH ×2 (09:00→20:40)
[2020-01-21] MEDS: COZAAR PO SCH ×2 (09:00→20:40)
[2020-01-21] MEDS: PriLOSEC PO SCH (09:00)
[2020-01-21] MEDS: TRICOR TAB 160 MG PO SCH (09:00)
[2020-01-21] MEDS: VITAMIN D3 125 mcg (5,000 UNITS) PO SCH (09:00)
[2020-01-21] MEDS: LOPRESSOR TAB 50 MG PO SCH ×2 (09:00→20:40)
[2020-01-21] MEDS: ESTRACE PO SCH (09:00)
[2020-01-21] MEDS: LOVENOX INJ 30 MG SYR SC SCH ×2 (09:40→20:45)
--- NOTE | 2020-01-21 11:44 | PCM.PROG ---
Progress Note Progress Note for Day of Date of Exam: 01/21/20 Subjective Subjective: Pt is a 59 y/o f pmhx HTN admitted for COVID-19 pneumonia (positive on 01/17). She reports some improvement today and return of strength. Labs/imaging: Wbc 10.8, Hgb 13.2, Plt 245, Na 149, K 3.7, Cr 0.76, Glucose 218, CRP 76>30. CXR:Patchy bilateral airspace opacities a suggesting multifocal pneumonia, unchanged. Treatment course includes: Remdesivir, Zosyn, Solumedrol 80mg Q8h, Bronchodilators, supplemental O2, IVF, I/S, RT support, pneumonia protocol. Pt currently requires 2L nc. Convalescent plasma ordered, awaiting arrival and transfusion. Mild hypernatremia, encourage water intake. Will decrease solumedrol to 80mg daily. Continue treatment plan, monitor and follow up labs/imaging in the morning. Past Medical Family Social History Past Med/Fam/Surg Hx: No changes since H&P Allergies: Allergies No Known Drug Allergies Allergy (Verified 01/18/20 13:08) Review of Systems ROS: No change since H&P Vital Signs and I&O's Vital Signs: Temperature 98.7 F Pulse Rate 64 Respiratory Rate 18 Blood Pressure [Right Arm] 149/60 Blood Pressure 165/66 O2 Sat by Pulse Oximetry 95 Intake and Output: Intake & Output 01/18/20 01/19/20 01/20/20 01/21/20 23:59 23:59 23:59 23:59 Intake Total 1444 / 1444 2763 / 2763 2846 / 2846 250 / 250 Output Total 1800 / 1800 1350 / 1350 450 / 450 Balance 1444 / 1444 963 / 963 1496 / 1496 -200 / -200 Physical Exam Oriented: Normal Eyes: Normal Ear: Normal Nose: Normal Throat: Normal Respiratory: Diminished Cardiovascular: Normal : Normal Auscultation: Bowel Sounds: Normal Tenderness: Normal Skin: Normal Musculoskeletal: Normal Psychiatric: Normal Mood Description: Calm and Appropriate Affect: Normal Speech Pattern: Clear and Appropriate Laboratory and Diagnostics Result Diagrams: 01/21/20 04:40 01/21/20 04:40 Labs: 01/18/20 10:52 Blood Blood Culture - Preliminary 01/18/20 10:52 Blood Blood Culture - Preliminary Laboratory WBC 10.8 X10^3/uL (3.6-10.0) H 01/21/20 04:40 RBC 4.50 X10^6/uL (3.5-5.4) 01/21/20 04:40 Hgb 13.2 g/dL (12.0-16.0) 01/21/20 04:40 Hct 40.2 % (36.0-47.0) 01/21/20 04:40 MCV 89.3 fL (80.0-100.0) 01/21/20 04:40 MCH 29.3 pg (27.0-34.0) 01/21/20 04:40 MCHC 32.8 g/dL (33.0-35.0) L 01/21/20 04:40 RDW 13.9 % (11.6-16.5) 01/21/20 04:40 Plt Count 245 X10^3/uL (150.0-450.0) 01/21/20 04:40 Plt Count Comment Adequate (ADEQUATE) 01/19/20 04:35 MPV 9.9 fL (7.4-11.0) 01/21/20 04:40 Neut % (Auto) 88.8 % (42.0-75.0) H 01/21/20 04:40 Lymph % (Auto) 5.5 % (21.0-51.0) L 01/21/20 04:40 [place] % (Auto) 5.5 % (0.0-13.0) 01/21/20 04:40 Eos % (Auto) 0.0 % (0.9-2.9) L 01/21/20 04:40 Baso % (Auto) 0.2 % (0.2-1.0) 01/21/20 04:40 Neut # (Auto) 9.6 x10^3/uL (2.2-4.8) H 01/21/20 04:40 Lymph # (Auto) 0.6 X10^3/uL (1.3-2.9) L 01/21/20 04:40 [place] # (Auto) 0.6 x10^3/uL (0.3-0.8) 01/21/20 04:40 Eos # (Auto) 0.0 x10^3/uL (0.0-0.2) 01/21/20 04:40 Baso # (Auto) 0.0 X10^3/uL (0.0-0.1) 01/21/20 04:40 Absolute Nucleated RBC 0.0 /100WBC 01/21/20 04:40 Total Counted 100 01/19/20 04:35 Neutrophils % (Manual) 89 % (39-76) H 01/19/20 04:35 Band Neutrophils % 2 % (0-10) 01/19/20 04:35 Lymphocytes % (Manual) 7 % (13-43) L 01/19/20 04:35 Monocytes % (Manual) 2 % (4-9) L 01/19/20 04:35 Plt Morphology Comment Normal (NORMAL) 01/19/20 04:35 RBC Morphology Normal (NORMAL) 01/19/20 04:35 PT 12.7 SECONDS (11.8-14.3) 01/18/20 12:51 INR Target Range - 01/18/20 12:51 INR 0.98 (0.8-1.3) 01/18/20 12:51 Sample Site Right radial 01/18/20 12:51 ABG pH 7.480 (7.35-7.45) H 01/18/20 12:51 ABG pCO2 31.0 mmHg (35.0-45.0) L 01/18/20 12:51 ABG pO2 55.0 mmHg (80.0-100.0) L 01/18/20 12:51 ABG HCO3 23.1 mmol/L (22-26) 01/18/20 12:51 ABG O2 Saturation 91.0 % (90-100) 01/18/20 12:51 ABG Base Excess 0.3 mmol/L (-2.0-2.0) 01/18/20 12:51 Test Pos 01/18/20 12:51 A-a Gradient 56.0 mmHg 01/18/20 12:51 FiO2 21.0 01/18/20 12:51 Blood Gas Comments Adam well aw 01/18/20 12:51 Sodium 149 mmol/L (136-145) H 01/21/20 04:40 Corrected Sodium 152 mmol/L (136-145) H 01/21/20 04:40 Potassium 3.7 mmol/L (3.5-5.1) 01/21/20 04:40 Chloride 113 mmol/L (98-107) H 01/21/20 04:40 Carbon Dioxide 27.3 mmol/L (21-32) 01/21/20 04:40 BUN 15 mg/dL (7-18) 01/21/20 04:40 Creatinine 0.76 mg/dL (0.55-1.02) 01/21/20 04:40 Est GFR (MDRD) Af Amer > 60 (>60) 01/21/20 04:40 Est GFR (MDRD) Non-Af > 60 (>60) 01/21/20 04:40 Glucose 218 mg/dL (65-99) H 01/21/20 04:40 Calcium 7.9 mg/dL (8.5-10.1) L 01/21/20 04:40 Corrected Calcium 9.4 mg/dL (8.5-10.1) 01/21/20 04:40 Total Bilirubin 0.20 mg/dL (0.2-1.0) 01/21/20 04:40 AST 32 Units/L (15-37) 01/21/20 04:40 ALT 44 Units/L (12-78) 01/21/20 04:40 Alkaline Phosphatase 96 Units/L (46-116) 01/21/20 04:40 Troponin I < 0.02 ng/mL (0-1.5) 01/18/20 12:51 C-Reactive Protein 30.20 mg/L (0-3.0) H 01/21/20 04:40 Total Protein 5.2 g/dL (6.4-8.2) L 01/21/20 04:40 Albumin 2.1 g/dL (3.4-5.0) L 01/21/20 04:40 Globulin 3.1 g/dL (2.5-4.5) 01/21/20 04:40 Albumin/Globulin Ratio 0.7 Ratio (1.1-2.1) L 01/21/20 04:40 Specimen Type Clean catch urine 01/19/20 00:46 Urine Color Yellow (YELLOW) 01/19/20 00:46 Urine Appearance Clear (CLEAR) 01/19/20 00:46 Urine pH 5.0 (5.0 - 8.0) 01/19/20 00:46 Ur Specific [place] 1.010 (1.000-1.030) 01/19/20 00:46 Urine Protein Negative (NEGATIVE) 01/19/20 00:46 Urine Glucose (UA) Negative (NEGATIVE) 01/19/20 00:46 Urine Ketones 2+ (NEGATIVE) 01/19/20 00:46 Urine Occult Blood Negative (NEGATIVE) 01/19/20 00:46 Urine Nitrite Negative (NEGATIVE) 01/19/20 00:46 Urine Bilirubin Negative (NEGATIVE) 01/19/20 00:46 Urine Urobilinogen Normal (NORMAL) 01/19/20 00:46 Ur Leukocyte Esterase Negative (NEGATIVE) 01/19/20 00:46 RSV Nasal Swab Negative (NEGATIVE) 01/18/20 16:30 Influenza Type A (PCR) Negative (NEGATIVE) 01/18/20 10:56 Influenza Type B (PCR) Negative (NEGATIVE) 01/18/20 10:56 SARS CoV-2 RNA Rapid NATY Positive (NEGATIVE) A 01/18/20 10:56 Blood Type A POSITIVE 01/19/20 11:02 Plan (1) Pneumonia due to COVID-19 virus: Status: Acute Plan: Remdesivir, Zosyn, Solumedrol, Bronchodilators, Supplemental O2. (2) Hypertension: Status: Chronic
[2020-01-21] MEDS: NS 1000 ML 1,000 ML IV SCH (14:59)
[2020-01-21] MEDS: NEURONTIN CAP 300 MG PO SCH (20:40)
[2020-01-21] MEDS: REMERON PO SCH (20:45)
[2020-01-21] MEDS: ROBITUSSIN DM PO PRN (20:47)
[2020-01-22] MEDS: ASCORBIC ACID INJ MULTI-DOSE VIAL 1,500 MG in NS 100 ML IV 100 ML IV SCH ×4 (02:45→20:35)
[2020-01-22] MEDS: REQUIP PO SCH ×3 (05:00→21:00)
[2020-01-22] MEDS: TESSALON PERLES PO PRN (05:00)
[2020-01-22] MEDS: ZOSYN VIAL 3.375 GRAMS 3.375 G in NS 50 ML IV + SPIKE MINIBAG* 50 ML IV SCH (05:00)
[2020-01-22 05:23] LABS: BASOPHILS % (AUTO) 0.1 % (0.2-1.0); HEMATOCRIT 39.4 % (36.0-47.0); HEMOGLOBIN 13.2 g/dL (12.0-16.0); LYMPHOCYTES # (AUTO) 0.6 X10^3/uL (1.3-2.9); LYMPHOCYTES % (AUTO) 6.6 % (21.0-51.0); MEAN CORPUSCULAR HEMOGLOBIN 29.3 pg (27.0-34.0); MEAN CORPUSCULAR HGB CONC 33.4 g/dL (33.0-35.0); MEAN CORPUSCULAR VOLUME 87.8 fL (80.0-100.0); MEAN PLATELET VOLUME 9.4 fL (7.4-11.0); MONOCYTES # (AUTO) 0.8 x10^3/uL (0.3-0.8); MONOCYTES % (AUTO) 7.8 % (0.0-13.0); NEUTROPHILS # (AUTO) 8.3 x10^3/uL (2.2-4.8); NEUTROPHILS % (AUTO) 85.5 % (42.0-75.0); PLATELET COUNT 239 X10^3/uL (150.0-450.0); RED BLOOD COUNT 4.49 X10^6/uL (3.5-5.4); RED CELL DISTRIBUTION WIDTH 13.8 % (11.6-16.5); WHITE BLOOD COUNT 9.7 X10^3/uL (3.6-10.0)
[2020-01-22 05:32] LABS: ALANINE AMINOTRANSFERASE 42 Units/L (12-78); ALBUMIN 2.2 g/dL (3.4-5.0); ALKALINE PHOSPHATASE 90 Units/L (46-116); ASPARTATE AMINO TRANSFERASE 26 Units/L (15-37); BLOOD UREA NITROGEN 13 mg/dL (7-18); CALCIUM 7.8 mg/dL (8.5-10.1); CARBON DIOXIDE 29.3 mmol/L (21-32); CHLORIDE 111 mmol/L (98-107); COR CA(FOR HYPOALB) 9.2 mg/dL (8.5-10.1); COR NA(FOR HYPERGLY) 150 mmol/L (136-145); CREATININE 0.82 mg/dL (0.55-1.02); SODIUM 147 mmol/L (136-145); TOTAL PROTEIN 5.2 g/dL (6.4-8.2); eGFR NON BLACK RACES > 60 (>60)
--- NOTE | 2020-01-22 08:34 | PCM.PROG ---
Progress Note Progress Note for Day of Date of Exam: 01/22/20 Subjective Subjective: Pt is a 59 y/o f pmhx HTN admitted for COVID-19 pneumonia (positive on 01/17). She reports no worsening in breathing this morning, feels like she has more energy. Labs/imaging: Wbc 9.7, Hgb 13.2, Plt 239, Na 147, K 3.6, Cr 0.82, Glucose 213, CRP 30>16. Treatment course includes: Remdesivir, Zosyn, Solumedrol 40mg, Bronchodilators, supplemental O2, IVF, I/S, RT support, pneumonia protocol. Pt currently requires 3L nc. Convalescent plasma transfused(01/20). Will get ambulatory O2 today. Continue treatment plan, monitor and follow up labs/imaging in the morning. Past Medical Family Social History Past Med/Fam/Surg Hx: No changes since H&P Allergies: Allergies No Known Drug Allergies Allergy (Verified 01/18/20 13:08) Review of Systems ROS: No change since H&P Vital Signs and I&O's Vital Signs: Temperature 97.7 F Pulse Rate 69 Respiratory Rate 22 Blood Pressure [Right Arm] 149/60 Blood Pressure 156/65 O2 Sat by Pulse Oximetry 93 Intake and Output: Intake & Output 01/19/20 01/20/20 01/21/20 01/22/20 23:59 23:59 23:59 23:59 Intake Total 2763 / 2763 2846 / 2846 2060 / 2060 334 / 334 Output Total 1800 / 1800 1350 / 1350 1150 / 1150 300 / 300 Balance 963 / 963 1496 / 1496 910 / 910 34 / 34 Physical Exam Oriented: Normal Eyes: Normal Ear: Normal Nose: Normal Throat: Normal Respiratory: Diminished Cardiovascular: Normal : Normal Auscultation: Bowel Sounds: Normal Tenderness: Normal Skin: Normal Musculoskeletal: Normal Psychiatric: Normal Mood Description: Calm and Appropriate Affect: Normal Speech Pattern: Clear and Appropriate Laboratory and Diagnostics Result Diagrams: 01/23/20 04:29 01/23/20 04:29 Labs: 01/18/20 10:52 Blood Blood Culture - Preliminary 01/18/20 10:52 Blood Blood Culture - Preliminary Laboratory WBC 9.7 X10^3/uL (3.6-10.0) 01/22/20 04:50 RBC 4.49 X10^6/uL (3.5-5.4) 01/22/20 04:50 Hgb 13.2 g/dL (12.0-16.0) 01/22/20 04:50 Hct 39.4 % (36.0-47.0) 01/22/20 04:50 MCV 87.8 fL (80.0-100.0) 01/22/20 04:50 MCH 29.3 pg (27.0-34.0) 01/22/20 04:50 MCHC 33.4 g/dL (33.0-35.0) 01/22/20 04:50 RDW 13.8 % (11.6-16.5) 01/22/20 04:50 Plt Count 239 X10^3/uL (150.0-450.0) 01/22/20 04:50 Plt Count Comment Adequate (ADEQUATE) 01/19/20 04:35 MPV 9.4 fL (7.4-11.0) 01/22/20 04:50 Neut % (Auto) 85.5 % (42.0-75.0) H 01/22/20 04:50 Lymph % (Auto) 6.6 % (21.0-51.0) L 01/22/20 04:50 [place] % (Auto) 7.8 % (0.0-13.0) 01/22/20 04:50 Eos % (Auto) 0.0 % (0.9-2.9) L 01/22/20 04:50 Baso % (Auto) 0.1 % (0.2-1.0) L 01/22/20 04:50 Neut # (Auto) 8.3 x10^3/uL (2.2-4.8) H 01/22/20 04:50 Lymph # (Auto) 0.6 X10^3/uL (1.3-2.9) L 01/22/20 04:50 [place] # (Auto) 0.8 x10^3/uL (0.3-0.8) 01/22/20 04:50 Eos # (Auto) 0.0 x10^3/uL (0.0-0.2) 01/22/20 04:50 Baso # (Auto) 0.0 X10^3/uL (0.0-0.1) 01/22/20 04:50 Absolute Nucleated RBC 0.0 /100WBC 01/22/20 04:50 Total Counted 100 01/19/20 04:35 Neutrophils % (Manual) 89 % (39-76) H 01/19/20 04:35 Band Neutrophils % 2 % (0-10) 01/19/20 04:35 Lymphocytes % (Manual) 7 % (13-43) L 01/19/20 04:35 Monocytes % (Manual) 2 % (4-9) L 01/19/20 04:35 Plt Morphology Comment Normal (NORMAL) 01/19/20 04:35 RBC Morphology Normal (NORMAL) 01/19/20 04:35 PT 12.7 SECONDS (11.8-14.3) 01/18/20 12:51 INR Target Range - 01/18/20 12:51 INR 0.98 (0.8-1.3) 01/18/20 12:51 Sample Site Right radial 01/18/20 12:51 ABG pH 7.480 (7.35-7.45) H 01/18/20 12:51 ABG pCO2 31.0 mmHg (35.0-45.0) L 01/18/20 12:51 ABG pO2 55.0 mmHg (80.0-100.0) L 01/18/20 12:51 ABG HCO3 23.1 mmol/L (22-26) 01/18/20 12:51 ABG O2 Saturation 91.0 % (90-100) 01/18/20 12:51 ABG Base Excess 0.3 mmol/L (-2.0-2.0) 01/18/20 12:51 Test Pos 01/18/20 12:51 A-a Gradient 56.0 mmHg 01/18/20 12:51 FiO2 21.0 01/18/20 12:51 Blood Gas Comments Adam well aw 01/18/20 12:51 Sodium 147 mmol/L (136-145) H 01/22/20 04:50 Corrected Sodium 150 mmol/L (136-145) H 01/22/20 04:50 Potassium 3.6 mmol/L (3.5-5.1) 01/22/20 04:50 Chloride 111 mmol/L (98-107) H 01/22/20 04:50 Carbon Dioxide 29.3 mmol/L (21-32) 01/22/20 04:50 BUN 13 mg/dL (7-18) 01/22/20 04:50 Creatinine 0.82 mg/dL (0.55-1.02) 01/22/20 04:50 Est GFR (MDRD) Af Amer > 60 (>60) 01/22/20 04:50 Est GFR (MDRD) Non-Af > 60 (>60) 01/22/20 04:50 Glucose 213 mg/dL (65-99) H 01/22/20 04:50 Calcium 7.8 mg/dL (8.5-10.1) L 01/22/20 04:50 Corrected Calcium 9.2 mg/dL (8.5-10.1) 01/22/20 04:50 Total Bilirubin 0.30 mg/dL (0.2-1.0) 01/22/20 04:50 AST 26 Units/L (15-37) 01/22/20 04:50 ALT 42 Units/L (12-78) 01/22/20 04:50 Alkaline Phosphatase 90 Units/L (46-116) 01/22/20 04:50 Troponin I < 0.02 ng/mL (0-1.5) 01/18/20 12:51 C-Reactive Protein 16.40 mg/L (0-3.0) H 01/22/20 04:50 Total Protein 5.2 g/dL (6.4-8.2) L 01/22/20 04:50 Albumin 2.2 g/dL (3.4-5.0) L 01/22/20 04:50 Globulin 3.0 g/dL (2.5-4.5) 01/22/20 04:50 Albumin/Globulin Ratio 0.7 Ratio (1.1-2.1) L 01/22/20 04:50 Specimen Type Clean catch urine 01/19/20 00:46 Urine Color Yellow (YELLOW) 01/19/20 00:46 Urine Appearance Clear (CLEAR) 01/19/20 00:46 Urine pH 5.0 (5.0 - 8.0) 01/19/20 00:46 Ur Specific [place] 1.010 (1.000-1.030) 01/19/20 00:46 Urine Protein Negative (NEGATIVE) 01/19/20 00:46 Urine Glucose (UA) Negative (NEGATIVE) 01/19/20 00:46 Urine Ketones 2+ (NEGATIVE) 01/19/20 00:46 Urine Occult Blood Negative (NEGATIVE) 01/19/20 00:46 Urine Nitrite Negative (NEGATIVE) 01/19/20 00:46 Urine Bilirubin Negative (NEGATIVE) 01/19/20 00:46 Urine Urobilinogen Normal (NORMAL) 01/19/20 00:46 Ur Leukocyte Esterase Negative (NEGATIVE) 01/19/20 00:46 RSV Nasal Swab Negative (NEGATIVE) 01/18/20 16:30 Influenza Type A (PCR) Negative (NEGATIVE) 01/18/20 10:56 Influenza Type B (PCR) Negative (NEGATIVE) 01/18/20 10:56 SARS CoV-2 RNA Rapid NATY Positive (NEGATIVE) A 01/18/20 10:56 Blood Type A POSITIVE 01/19/20 11:02 Plan (1) Pneumonia due to COVID-19 virus: Status: Acute Plan: Remdesivir, Zosyn, Solumedrol, Bronchodilators, Supplemental O2. (2) Hypertension: Status: Chronic
[2020-01-22] MEDS: CELEXA PO SCH (08:43)
[2020-01-22] MEDS: COZAAR PO SCH ×2 (08:43→20:35)
[2020-01-22] MEDS: ESTRACE PO SCH (08:43)
[2020-01-22] MEDS: LOVENOX INJ 30 MG SYR SC SCH ×2 (08:43→20:35)
[2020-01-22] MEDS: LOPRESSOR TAB 50 MG PO SCH ×2 (08:43→20:35)
[2020-01-22] MEDS: PROVERA PO SCH (08:44)
[2020-01-22] MEDS: NORVASC TAB 10 MG PO SCH (08:44)
[2020-01-22] MEDS: REMDESIVIR 100 MG in NS 250 ML IV 250 ML IV SCH (08:44)
[2020-01-22] MEDS: PriLOSEC PO SCH (08:44)
[2020-01-22] MEDS: SOLU-Medrol 40 MG VIAL IVP SCH (08:44)
[2020-01-22] MEDS: MICRO K EXTEN CAP 10 MEQ PO SCH ×2 (08:44→20:35)
[2020-01-22] MEDS: VITAMIN A PO SCH (08:45)
[2020-01-22] MEDS: VITAMIN D3 125 mcg (5,000 UNITS) PO SCH (08:45)
[2020-01-22] MEDS: ZINC SULFATE PO SCH ×2 (08:45→20:35)
[2020-01-22] MEDS: TRICOR TAB 160 MG PO SCH (08:45)
[2020-01-22] MEDS ORDERED: ZOFRAN INJ 4 MG VIAL IVP PRN (08:54)
[2020-01-22] MEDS: DUONEB 0.5 MG/3 MG (3 mL) NEB SCH ×5 (08:55→20:50)
[2020-01-22] MEDS: PULMICORT NEB TX 0.5 MG NEB SCH ×3 (08:55→20:50)
[2020-01-22] MEDS ORDERED: COLACE CAP 100 MG PO PRN (10:35)
[2020-01-22] MEDS: NS 1000 ML 1,000 ML IV SCH (15:05)
[2020-01-22] MEDS: NEURONTIN CAP 300 MG PO SCH (20:35)
[2020-01-22] MEDS: REMERON PO SCH (20:35)
[2020-01-23] MEDS: ASCORBIC ACID INJ MULTI-DOSE VIAL 1,500 MG in NS 100 ML IV 100 ML IV SCH ×2 (02:45→08:33)
[2020-01-23] MEDS: REQUIP PO SCH (05:00)
[2020-01-23 05:38] LABS: BASOPHILS % (AUTO) 0.1 % (0.2-1.0); EOSINOPHILS % (AUTO) 0.1 % (0.9-2.9); HEMOGLOBIN 12.5 g/dL (12.0-16.0); MEAN CORPUSCULAR HEMOGLOBIN 29.4 pg (27.0-34.0); MONOCYTES # (AUTO) 0.8 x10^3/uL (0.3-0.8); MONOCYTES % (AUTO) 8.7 % (0.0-13.0); NEUTROPHILS # (AUTO) 7.4 x10^3/uL (2.2-4.8); NEUTROPHILS % (AUTO) 80.1 % (42.0-75.0); PLATELET COUNT 227 X10^3/uL (150.0-450.0); RED BLOOD COUNT 4.27 X10^6/uL (3.5-5.4); RED CELL DISTRIBUTION WIDTH 13.6 % (11.6-16.5); WHITE BLOOD COUNT 9.2 X10^3/uL (3.6-10.0)
[2020-01-23 05:57] LABS: ALANINE AMINOTRANSFERASE 39 Units/L (12-78); ALKALINE PHOSPHATASE 76 Units/L (46-116); ASPARTATE AMINO TRANSFERASE 23 Units/L (15-37); BLOOD UREA NITROGEN 14 mg/dL (7-18); CALCIUM 7.6 mg/dL (8.5-10.1); CHLORIDE 110 mmol/L (98-107); COR CA(FOR HYPOALB) 9.2 mg/dL (8.5-10.1); COR NA(FOR HYPERGLY) 148 mmol/L (136-145); CREATININE 0.71 mg/dL (0.55-1.02); SODIUM 147 mmol/L (136-145); TOTAL PROTEIN 4.8 g/dL (6.4-8.2); eGFR NON BLACK RACES > 60 (>60)
[2020-01-23 06:02] LABS: BAND NEUTROPHILS % 2 % (0-10); PLATELET MORPHOLOGY COMMENT NORMAL (NORMAL)
[2020-01-23 08:01] VITALS: BP 186/78
--- NOTE | 2020-01-23 08:11 | W.DIS.FURT ---
Summary of Discharge Discharge Summary of Date Date of Exam: 01/23/20 Admission Date Date of Admission: 01/18/20 Admission Diagnosis Patient Problems (Updated 01/18/20 @ 12:47 by Avila Landa) Pneumonia due to COVID-19 virus (Acute) U07.1, J12.89 Hospital Course: Pt is a 59 year old female pmhx HTN admitted for COVID-19 pneumonia (positive on 01/17). Hospital/treatment course included: Remdesivir, Zosyn, Solumedrol, Bronchodilators, supplemental O2, IVF, I/S, RT support, pneumonia protocol. Convalescent plasma transfused(01/20). Pt responded well to treatments. Labs/imaging: Wbc 9.2, Hgb 12.5, Plt 227, Na 147, K 3.5, Cr 0.71, Glucose 148. Pt required 2-3L on ambulatory pulse ox. Pt was discharged in stable condition, Rx prednisone x 5 days. Home O2 set up and pt instructed to follow up with pcp in 3-5 days. Vital Signs: Vital Signs (72 hours) 01/20/20 08:15 01/20/20 08:19 01/20/20 08:30 Temperature Pulse Rate 78 78 76 Respiratory Rate 44 H 40 H 26 H Blood Pressure 163/71 O2 Sat by Pulse Oximetry 95 95 100 01/20/20 08:45 01/20/20 09:00 01/20/20 09:15 Temperature Pulse Rate 88 84 89 Respiratory Rate 28 H 37 H 28 H Blood Pressure 142/62 O2 Sat by Pulse Oximetry 95 94 L 93 L 01/20/20 09:30 01/20/20 09:45 01/20/20 10:00 Temperature Pulse Rate 82 82 89 Respiratory Rate 37 H 37 H 24 Blood Pressure 160/68 O2 Sat by Pulse Oximetry 94 L 94 L 94 L 01/20/20 10:15 01/20/20 10:30 01/20/20 10:45 Temperature Pulse Rate 77 76 78 Respiratory Rate 41 H 30 H 22 Blood Pressure O2 Sat by Pulse Oximetry 94 L 93 L 95 01/20/20 11:00 01/20/20 11:15 01/20/20 11:30 Temperature Pulse Rate 74 74 72 Respiratory Rate 27 H 27 H 24 Blood Pressure 144/62 O2 Sat by Pulse Oximetry 94 L 94 L 93 L 01/20/20 11:45 01/20/20 12:00 01/20/20 12:01 Temperature Pulse Rate 72 76 74 Respiratory Rate 22 45 H 50 H Blood Pressure 132/61 O2 Sat by Pulse Oximetry 93 L 93 L 93 L 01/20/20 12:15 01/20/20 12:30 01/20/20 12:58 Temperature Pulse Rate 72 75 73 Respiratory Rate 32 H 27 H Blood Pressure O2 Sat by Pulse Oximetry 93 L 94 L 93 L 01/20/20 13:00 01/20/20 13:15 01/20/20 13:30 Temperature Pulse Rate 72 77 78 Respiratory Rate 33 H 28 H 25 H Blood Pressure 146/68 O2 Sat by Pulse Oximetry 92 L 92 L 93 L 01/20/20 13:45 01/20/20 14:00 01/20/20 14:15 Temperature Pulse Rate 74 72 72 Respiratory Rate 34 H 28 H 33 H Blood Pressure 143/62 O2 Sat by Pulse Oximetry 94 L 93 L 93 L 01/20/20 14:30 01/20/20 14:45 01/20/20 15:00 Temperature Pulse Rate 75 71 71 Respiratory Rate 30 H 25 H 25 H Blood Pressure 149/65 O2 Sat by Pulse Oximetry 93 L 93 L 92 L 01/20/20 15:15 01/20/20 15:30 01/20/20 15:45 Temperature Pulse Rate 71 71 70 Respiratory Rate 25 H 25 H 24 Blood Pressure O2 Sat by Pulse Oximetry 92 L 92 L 93 L 01/20/20 16:00 01/20/20 16:10 01/20/20 16:15 Temperature 97.8 F Pulse Rate 69 80 Respiratory Rate 24 23 Blood Pressure 136/62 O2 Sat by Pulse Oximetry 92 L 91 L 93 L 01/20/20 16:30 01/20/20 16:45 01/20/20 17:00 Temperature Pulse Rate 79 85 80 Respiratory Rate 27 H 30 H 26 H Blood Pressure 152/63 O2 Sat by Pulse Oximetry 90 L 91 L 91 L 01/20/20 17:15 01/20/20 17:30 01/20/20 17:52 Temperature Pulse Rate 79 87 79 Respiratory Rate 28 H 33 H Blood Pressure O2 Sat by Pulse Oximetry 92 L 90 L 89 L 01/20/20 18:00 01/20/20 18:15 01/20/20 18:18 Temperature Pulse Rate 78 83 84 Respiratory Rate 32 H 33 H 27 H Blood Pressure 122/60 O2 Sat by Pulse Oximetry 90 L 92 L 92 L 01/20/20 18:30 01/20/20 20:00 01/20/20 21:15 Temperature 97.6 F Pulse Rate 87 77 78 Respiratory Rate 32 H 25 H Blood Pressure 136/61 O2 Sat by Pulse Oximetry 91 L 92 L 93 L 01/20/20 21:45 01/20/20 22:00 01/20/20 22:15 Temperature Pulse Rate 76 72 70 Respiratory Rate 25 H 25 H 23 Blood Pressure 142/65 O2 Sat by Pulse Oximetry 90 L 89 L 92 L 01/20/20 22:30 01/20/20 22:45 01/20/20 23:00 Temperature Pulse Rate 73 66 65 Respiratory Rate 24 28 H 22 Blood Pressure O2 Sat by Pulse Oximetry 90 L 90 L 90 L 01/20/20 23:15 01/20/20 23:30 01/20/20 23:45 Temperature Pulse Rate 66 67 63 Respiratory Rate 23 19 31 H Blood Pressure O2 Sat by Pulse Oximetry 90 L 88 L 93 L 01/21/20 00:00 01/21/20 00:01 01/21/20 00:15 Temperature 98.2 F Pulse Rate 63 65 66 Respiratory Rate 18 28 H 25 H Blood Pressure 140/69 140/69 O2 Sat by Pulse Oximetry 92 L 95 93 L 01/21/20 00:30 01/21/20 00:45 01/21/20 01:00 Temperature Pulse Rate 65 62 63 Respiratory Rate 22 23 21 Blood Pressure O2 Sat by Pulse Oximetry 92 L 93 L 92 L 01/21/20 01:15 01/21/20 01:30 01/21/20 01:45 Temperature Pulse Rate 63 62 65 Respiratory Rate 21 22 30 H Blood Pressure O2 Sat by Pulse Oximetry 92 L 91 L 91 L 01/21/20 02:00 01/21/20 02:15 01/21/20 02:30 Temperature Pulse Rate 63 63 62 Respiratory Rate 28 H 22 23 Blood Pressure 133/62 O2 Sat by Pulse Oximetry 91 L 92 L 93 L 01/21/20 02:45 01/21/20 03:00 01/21/20 03:15 Temperature Pulse Rate 62 63 60 Respiratory Rate 22 22 25 H Blood Pressure O2 Sat by Pulse Oximetry 93 L 93 L 92 L 01/21/20 03:30 01/21/20 03:45 01/21/20 04:00 Temperature 98.0 F Pulse Rate 60 65 63 Respiratory Rate 22 22 23 Blood Pressure 142/61 O2 Sat by Pulse Oximetry 93 L 94 L 94 L 01/21/20 04:01 01/21/20 04:15 01/21/20 04:30 Temperature Pulse Rate 62 61 61 Respiratory Rate 22 23 21 Blood Pressure 142/61 O2 Sat by Pulse Oximetry 94 L 93 L 93 L 01/21/20 04:45 01/21/20 05:00 01/21/20 05:15 Temperature Pulse Rate 65 69 70 Respiratory Rate 20 25 H 23 Blood Pressure O2 Sat by Pulse Oximetry 93 L 96 94 L 01/21/20 05:30 01/21/20 05:45 01/21/20 06:00 Temperature Pulse Rate 69 68 62 Respiratory Rate 22 32 H 21 Blood Pressure 149/66 O2 Sat by Pulse Oximetry 94 L 93 L 91 L 01/21/20 06:15 01/21/20 06:30 01/21/20 06:45 Temperature Pulse Rate 61 61 62 Respiratory Rate 23 22 22 Blood Pressure O2 Sat by Pulse Oximetry 93 L 94 L 95 01/21/20 07:00 01/21/20 07:15 01/21/20 07:30 Temperature Pulse Rate 62 62 60 Respiratory Rate 22 22 20 Blood Pressure O2 Sat by Pulse Oximetry 94 L 94 L 94 L 01/21/20 07:45 01/21/20 08:00 01/21/20 08:15 Temperature 98.7 F Pulse Rate 64 64 70 Respiratory Rate 21 18 28 H Blood Pressure 165/66 O2 Sat by Pulse Oximetry 94 L 96 93 L 01/21/20 08:30 01/21/20 08:45 01/21/20 09:00 Temperature Pulse Rate 79 72 71 Respiratory Rate 30 H 21 25 H Blood Pressure O2 Sat by Pulse Oximetry 91 L 92 L 92 L 01/21/20 09:25 01/21/20 09:30 01/21/20 09:45 Temperature Pulse Rate 80 69 70 Respiratory Rate 28 H 32 H Blood Pressure O2 Sat by Pulse Oximetry 94 L 96 01/21/20 10:00 01/21/20 10:15 01/21/20 10:30 Temperature Pulse Rate 69 72 69 Respiratory Rate 27 H 31 H 32 H Blood Pressure 149/64 O2 Sat by Pulse Oximetry 97 96 94 L 01/21/20 10:45 01/21/20 11:00 01/21/20 11:15 Temperature Pulse Rate 68 72 66 Respiratory Rate 22 30 H 23 Blood Pressure O2 Sat by Pulse Oximetry 94 L 92 L 92 L 01/21/20 11:30 01/21/20 11:45 01/21/20 12:00 Temperature Pulse Rate 68 69 65 Respiratory Rate 23 22 24 Blood Pressure 139/65 O2 Sat by Pulse Oximetry 91 L 92 L 94 L 01/21/20 12:15 01/21/20 12:30 01/21/20 12:45 Temperature 98.7 F Pulse Rate 64 66 64 Respiratory Rate 23 23 22 Blood Pressure O2 Sat by Pulse Oximetry 94 L 93 L 92 L 01/21/20 13:00 01/21/20 13:15 01/21/20 13:30 Temperature Pulse Rate 76 76 70 Respiratory Rate 26 H 26 H 25 H Blood Pressure O2 Sat by Pulse Oximetry 93 L 92 L 93 L 01/21/20 13:45 01/21/20 14:00 01/21/20 14:15 Temperature Pulse Rate 68 66 68 Respiratory Rate 22 22 23 Blood Pressure 128/60 O2 Sat by Pulse Oximetry 93 L 93 L 95 01/21/20 14:30 01/21/20 14:45 01/21/20 15:00 Temperature Pulse Rate 70 66 65 Respiratory Rate 25 H 35 H 27 H Blood Pressure O2 Sat by Pulse Oximetry 92 L 92 L 92 L 01/21/20 15:15 01/21/20 15:30 01/21/20 15:45 Temperature Pulse Rate 73 68 70 Respiratory Rate 27 H 32 H 30 H Blood Pressure O2 Sat by Pulse Oximetry 93 L 91 L 92 L 01/21/20 16:00 01/21/20 16:04 01/21/20 16:15 Temperature Pulse Rate 74 72 67 Respiratory Rate 38 H 20 27 H Blood Pressure 156/69 O2 Sat by Pulse Oximetry 85 L 93 L 91 L 01/21/20 16:16 01/21/20 20:00 01/21/20 21:05 Temperature 97.8 F 97.7 F Pulse Rate 67 80 80 Respiratory Rate 28 H 31 H Blood Pressure 176/79 162/72 O2 Sat by Pulse Oximetry 91 L 92 L 93 L 01/21/20 22:08 01/21/20 22:15 01/21/20 22:30 Temperature Pulse Rate 80 74 78 Respiratory Rate 26 H 27 H 34 H Blood Pressure O2 Sat by Pulse Oximetry 93 L 91 L 91 L 01/21/20 22:45 01/21/20 23:00 01/21/20 23:15 Temperature Pulse Rate 78 75 75 Respiratory Rate 27 H 26 H 24 Blood Pressure O2 Sat by Pulse Oximetry 89 L 89 L 89 L 01/21/20 23:30 01/21/20 23:45 01/22/20 00:00 Temperature 98.1 F Pulse Rate 74 73 74 Respiratory Rate 26 H 25 H 22 Blood Pressure 150/66 O2 Sat by Pulse Oximetry 87 L 88 L 89 L 01/22/20 00:15 01/22/20 00:30 01/22/20 00:45 Temperature Pulse Rate 74 68 68 Respiratory Rate 25 H 23 24 Blood Pressure O2 Sat by Pulse Oximetry 89 L 90 L 90 L 01/22/20 01:00 01/22/20 01:15 01/22/20 01:30 Temperature Pulse Rate 67 66 67 Respiratory Rate 23 22 24 Blood Pressure O2 Sat by Pulse Oximetry 90 L 90 L 90 L 01/22/20 01:46 01/22/20 02:00 01/22/20 02:15 Temperature Pulse Rate 68 78 67 Respiratory Rate 23 20 30 H Blood Pressure 143/68 O2 Sat by Pulse Oximetry 90 L 91 L 93 L 01/22/20 02:30 01/22/20 02:45 01/22/20 03:00 Temperature Pulse Rate 68 67 77 Respiratory Rate 35 H 33 H Blood Pressure O2 Sat by Pulse Oximetry 93 L 93 L 91 L 01/22/20 03:20 01/22/20 03:30 01/22/20 03:45 Temperature Pulse Rate 71 75 73 Respiratory Rate 29 H 27 H Blood Pressure O2 Sat by Pulse Oximetry 93 L 94 L 96 01/22/20 04:00 01/22/20 04:15 01/22/20 04:30 Temperature 97.7 F Pulse Rate 69 78 69 Respiratory Rate 22 23 23 Blood Pressure 156/65 O2 Sat by Pulse Oximetry 93 L 92 L 93 L 01/22/20 04:45 01/22/20 05:00 01/22/20 05:15 Temperature Pulse Rate 64 65 67 Respiratory Rate 26 H 27 H 19 Blood Pressure O2 Sat by Pulse Oximetry 94 L 94 L 92 L 01/22/20 05:30 01/22/20 05:45 01/22/20 06:00 Temperature Pulse Rate 65 62 63 Respiratory Rate 32 H 21 23 Blood Pressure O2 Sat by Pulse Oximetry 92 L 92 L 90 L 01/22/20 06:01 01/22/20 06:15 01/22/20 06:30 Temperature Pulse Rate 62 60 61 Respiratory Rate 23 23 24 Blood Pressure 179/74 O2 Sat by Pulse Oximetry 91 L 91 L 91 L 01/22/20 06:45 01/22/20 07:00 01/22/20 07:15 Temperature Pulse Rate 60 60 60 Respiratory Rate 23 24 23 Blood Pressure O2 Sat by Pulse Oximetry 91 L 89 L 89 L 01/22/20 07:30 01/22/20 07:45 01/22/20 07:59 Temperature Pulse Rate 62 73 69 Respiratory Rate 22 29 H 30 H Blood Pressure O2 Sat by Pulse Oximetry 87 L 92 L 92 L 01/22/20 08:00 01/22/20 08:02 01/22/20 08:15 Temperature Pulse Rate 70 69 Respiratory Rate 27 H 49 H Blood Pressure 186/77 O2 Sat by Pulse Oximetry 93 L 90 L 01/22/20 08:30 01/22/20 08:45 01/22/20 08:55 Temperature 98.5 F Pulse Rate 76 72 74 Respiratory Rate 25 H 22 Blood Pressure O2 Sat by Pulse Oximetry 91 L 90 L 91 L 01/22/20 09:00 01/22/20 09:15 01/22/20 09:30 Temperature Pulse Rate 65 62 62 Respiratory Rate 23 25 H 24 Blood Pressure O2 Sat by Pulse Oximetry 93 L 92 L 91 L 01/22/20 09:45 01/22/20 10:00 01/22/20 10:01 Temperature Pulse Rate 62 66 69 Respiratory Rate 35 H 31 H 27 H Blood Pressure 151/66 O2 Sat by Pulse Oximetry 91 L 89 L 92 L 01/22/20 10:15 01/22/20 10:30 01/22/20 10:45 Temperature Pulse Rate 78 71 73 Respiratory Rate 24 29 H Blood Pressure O2 Sat by Pulse Oximetry 82 L 91 L 91 L 01/22/20 11:00 01/22/20 11:15 01/22/20 11:30 Temperature Pulse Rate 68 80 69 Respiratory Rate 32 H 31 H 33 H Blood Pressure O2 Sat by Pulse Oximetry 90 L 88 L 91 L 01/22/20 11:45 01/22/20 11:56 01/22/20 12:00 Temperature Pulse Rate 67 68 66 Respiratory Rate 30 H 29 H Blood Pressure O2 Sat by Pulse Oximetry 94 L 94 L 98 01/22/20 12:01 01/22/20 12:16 01/22/20 12:30 Temperature 97.5 F L Pulse Rate 66 78 73 Respiratory Rate 29 H 26 H 30 H Blood Pressure 176/74 O2 Sat by Pulse Oximetry 99 93 L 90 L 01/22/20 12:45 01/22/20 13:00 01/22/20 13:15 Temperature Pulse Rate 75 75 74 Respiratory Rate 32 H 24 24 Blood Pressure O2 Sat by Pulse Oximetry 91 L 91 L 90 L 01/22/20 13:30 01/22/20 13:45 01/22/20 14:00 Temperature Pulse Rate 68 79 67 Respiratory Rate 37 H 34 H Blood Pressure O2 Sat by Pulse Oximetry 92 L 81 L 90 L 01/22/20 14:01 01/22/20 14:15 01/22/20 14:30 Temperature Pulse Rate 68 65 66 Respiratory Rate 46 H 42 H 32 H Blood Pressure 168/74 O2 Sat by Pulse Oximetry 91 L 93 L 94 L 01/22/20 14:45 01/22/20 15:00 01/22/20 15:15 Temperature Pulse Rate 66 66 66 Respiratory Rate 48 H 28 H 42 H Blood Pressure O2 Sat by Pulse Oximetry 93 L 94 L 94 L 01/22/20 15:30 01/22/20 15:45 01/22/20 16:00 Temperature Pulse Rate 76 65 68 Respiratory Rate 38 H 22 25 H Blood Pressure O2 Sat by Pulse Oximetry 91 L 93 L 91 L 01/22/20 16:01 01/22/20 16:15 01/22/20 16:30 Temperature Pulse Rate 69 65 68 Respiratory Rate 22 46 H 35 H Blood Pressure 151/67 O2 Sat by Pulse Oximetry 94 L 93 L 94 L 01/22/20 16:45 01/22/20 17:00 01/22/20 17:10 Temperature Pulse Rate 70 67 66 Respiratory Rate 25 H 33 H Blood Pressure O2 Sat by Pulse Oximetry 91 L 95 94 L 01/22/20 20:00 01/22/20 20:50 01/22/20 22:00 Temperature 98.0 F 97.5 F L Pulse Rate 68 70 67 Respiratory Rate 29 H 39 H Blood Pressure 176/74 O2 Sat by Pulse Oximetry 93 L 94 L 91 L 01/22/20 22:01 01/22/20 22:15 01/22/20 22:30 Temperature Pulse Rate 67 67 67 Respiratory Rate 26 H 24 22 Blood Pressure 142/63 O2 Sat by Pulse Oximetry 92 L 93 L 93 L 01/22/20 22:45 01/22/20 23:00 01/22/20 23:15 Temperature Pulse Rate 67 65 63 Respiratory Rate 22 23 22 Blood Pressure O2 Sat by Pulse Oximetry 94 L 93 L 94 L 01/22/20 23:30 01/22/20 23:45 01/23/20 00:00 Temperature 98.0 F Pulse Rate 64 65 68 Respiratory Rate 22 22 20 Blood Pressure 128/60 O2 Sat by Pulse Oximetry 94 L 94 L 93 L 01/23/20 00:15 01/23/20 00:30 01/23/20 00:45 Temperature Pulse Rate 65 63 63 Respiratory Rate 22 22 22 Blood Pressure O2 Sat by Pulse Oximetry 93 L 94 L 94 L 01/23/20 01:00 01/23/20 01:15 01/23/20 01:30 Temperature Pulse Rate 63 65 67 Respiratory Rate 46 H 44 H 28 H Blood Pressure O2 Sat by Pulse Oximetry 90 L 90 L 90 L 01/23/20 01:45 01/23/20 02:00 01/23/20 02:01 Temperature Pulse Rate 71 71 64 Respiratory Rate 21 27 H 21 Blood Pressure 167/73 O2 Sat by Pulse Oximetry 91 L 93 L 93 L 01/23/20 02:15 01/23/20 02:30 01/23/20 02:45 Temperature Pulse Rate 63 62 65 Respiratory Rate 22 21 22 Blood Pressure O2 Sat by Pulse Oximetry 90 L 90 L 92 L 01/23/20 03:00 01/23/20 03:15 01/23/20 03:30 Temperature Pulse Rate 62 64 62 Respiratory Rate 20 34 H 31 H Blood Pressure O2 Sat by Pulse Oximetry 91 L 90 L 90 L 01/23/20 03:45 01/23/20 04:00 01/23/20 04:01 Temperature 98.1 F Pulse Rate 62 62 61 Respiratory Rate 20 18 20 Blood Pressure 143/62 143/62 O2 Sat by Pulse Oximetry 90 L 90 L 91 L 01/23/20 04:15 01/23/20 04:30 01/23/20 04:45 Temperature Pulse Rate 61 68 69 Respiratory Rate 22 19 23 Blood Pressure O2 Sat by Pulse Oximetry 90 L 92 L 92 L 01/23/20 05:00 01/23/20 05:15 01/23/20 05:30 Temperature Pulse Rate 71 65 66 Respiratory Rate 31 H 35 H 25 H Blood Pressure O2 Sat by Pulse Oximetry 91 L 91 L 91 L 01/23/20 05:45 01/23/20 06:00 01/23/20 06:04 Temperature Pulse Rate 63 62 68 Respiratory Rate 24 20 20 Blood Pressure 186/78 O2 Sat by Pulse Oximetry 90 L 89 L 91 L 01/23/20 06:15 01/23/20 06:30 01/23/20 06:45 Temperature Pulse Rate 62 62 62 Respiratory Rate 23 24 23 Blood Pressure O2 Sat by Pulse Oximetry 92 L 92 L 93 L 01/23/20 07:00 01/23/20 07:15 01/23/20 07:30 Temperature Pulse Rate 62 61 67 Respiratory Rate 22 22 36 H Blood Pressure O2 Sat by Pulse Oximetry 94 L 94 L 92 L 01/23/20 07:45 01/23/20 08:00 Temperature Pulse Rate 66 73 Respiratory Rate 18 24 Blood Pressure O2 Sat by Pulse Oximetry 94 L 92 L Labs: Laboratory Last Values WBC 9.2 X10^3/uL (3.6-10.0) 01/23/20 04:29 RBC 4.27 X10^6/uL (3.5-5.4) 01/23/20 04:29 Hgb 12.5 g/dL (12.0-16.0) 01/23/20 04:29 Hct 38.0 % (36.0-47.0) 01/23/20 04:29 MCV 89.0 fL (80.0-100.0) 01/23/20 04:29 MCH 29.4 pg (27.0-34.0) 01/23/20 04:29 MCHC 33.0 g/dL (33.0-35.0) 01/23/20 04:29 RDW 13.6 % (11.6-16.5) 01/23/20 04:29 Plt Count 227 X10^3/uL (150.0-450.0) 01/23/20 04:29 Plt Count Comment Adequate (ADEQUATE) 01/23/20 04:29 MPV 10.0 fL (7.4-11.0) 01/23/20 04:29 Neut % (Auto) 80.1 % (42.0-75.0) H 01/23/20 04:29 Lymph % (Auto) 11.0 % (21.0-51.0) L 01/23/20 04:29 [place] % (Auto) 8.7 % (0.0-13.0) 01/23/20 04:29 Eos % (Auto) 0.1 % (0.9-2.9) L 01/23/20 04:29 Baso % (Auto) 0.1 % (0.2-1.0) L 01/23/20 04:29 Neut # (Auto) 7.4 x10^3/uL (2.2-4.8) H 01/23/20 04:29 Lymph # (Auto) 1.0 X10^3/uL (1.3-2.9) L 01/23/20 04:29 [place] # (Auto) 0.8 x10^3/uL (0.3-0.8) 01/23/20 04:29 Eos # (Auto) 0.0 x10^3/uL (0.0-0.2) 01/23/20 04:29 Baso # (Auto) 0.0 X10^3/uL (0.0-0.1) 01/23/20 04:29 Absolute Nucleated RBC 0.1 /100WBC 01/23/20 04:29 Total Counted 100 01/23/20 04:29 Neutrophils % (Manual) 73 % (39-76) 01/23/20 04:29 Band Neutrophils % 2 % (0-10) 01/23/20 04:29 Lymphocytes % (Manual) 16 % (13-43) 01/23/20 04:29 Monocytes % (Manual) 7 % (4-9) 01/23/20 04:29 Plt Morphology Comment Normal (NORMAL) 01/23/20 04:29 RBC Morphology Normal (NORMAL) 01/23/20 04:29 PT 12.7 SECONDS (11.8-14.3) 01/18/20 12:51 INR Target Range - 01/18/20 12:51 INR 0.98 (0.8-1.3) 01/18/20 12:51 Sample Site Right radial 01/18/20 12:51 ABG pH 7.480 (7.35-7.45) H 01/18/20 12:51 ABG pCO2 31.0 mmHg (35.0-45.0) L 01/18/20 12:51 ABG pO2 55.0 mmHg (80.0-100.0) L 01/18/20 12:51 ABG HCO3 23.1 mmol/L (22-26) 01/18/20 12:51 ABG O2 Saturation 91.0 % (90-100) 01/18/20 12:51 ABG Base Excess 0.3 mmol/L (-2.0-2.0) 01/18/20 12:51 Test Pos 01/18/20 12:51 A-a Gradient 56.0 mmHg 01/18/20 12:51 FiO2 21.0 01/18/20 12:51 Blood Gas Comments Adam well aw 01/18/20 12:51 Sodium 147 mmol/L (136-145) H 01/23/20 04:29 Corrected Sodium 148 mmol/L (136-145) H 01/23/20 04:29 Potassium 3.5 mmol/L (3.5-5.1) 01/23/20 04:29 Chloride 110 mmol/L (98-107) H 01/23/20 04:29 Carbon Dioxide 31.0 mmol/L (21-32) 01/23/20 04:29 BUN 14 mg/dL (7-18) 01/23/20 04:29 Creatinine 0.71 mg/dL (0.55-1.02) 01/23/20 04:29 Est GFR (MDRD) Af Amer > 60 (>60) 01/23/20 04:29 Est GFR (MDRD) Non-Af > 60 (>60) 01/23/20 04:29 Glucose 148 mg/dL (65-99) H 01/23/20 04:29 Calcium 7.6 mg/dL (8.5-10.1) L 01/23/20 04:29 Corrected Calcium 9.2 mg/dL (8.5-10.1) 01/23/20 04:29 Total Bilirubin 0.30 mg/dL (0.2-1.0) 01/23/20 04:29 AST 23 Units/L (15-37) 01/23/20 04:29 ALT 39 Units/L (12-78) 01/23/20 04:29 Alkaline Phosphatase 76 Units/L (46-116) 01/23/20 04:29 Troponin I < 0.02 ng/mL (0-1.5) 01/18/20 12:51 C-Reactive Protein 16.40 mg/L (0-3.0) H 01/22/20 04:50 Total Protein 4.8 g/dL (6.4-8.2) L 01/23/20 04:29 Albumin 2.0 g/dL (3.4-5.0) L 01/23/20 04:29 Globulin 2.8 g/dL (2.5-4.5) 01/23/20 04:29 Albumin/Globulin Ratio 0.7 Ratio (1.1-2.1) L 01/23/20 04:29 Specimen Type Clean catch urine 01/19/20 00:46 Urine Color Yellow (YELLOW) 01/19/20 00:46 Urine Appearance Clear (CLEAR) 01/19/20 00:46 Urine pH 5.0 (5.0 - 8.0) 01/19/20 00:46 Ur Specific [place] 1.010 (1.000-1.030) 01/19/20 00:46 Urine Protein Negative (NEGATIVE) 01/19/20 00:46 Urine Glucose (UA) Negative (NEGATIVE) 01/19/20 00:46 Urine Ketones 2+ (NEGATIVE) 01/19/20 00:46 Urine Occult Blood Negative (NEGATIVE) 01/19/20 00:46 Urine Nitrite Negative (NEGATIVE) 01/19/20 00:46 Urine Bilirubin Negative (NEGATIVE) 01/19/20 00:46 Urine Urobilinogen Normal (NORMAL) 01/19/20 00:46 Ur Leukocyte Esterase Negative (NEGATIVE) 01/19/20 00:46 RSV Nasal Swab Negative (NEGATIVE) 01/18/20 16:30 Influenza Type A (PCR) Negative (NEGATIVE) 01/18/20 10:56 Influenza Type B (PCR) Negative (NEGATIVE) 01/18/20 10:56 SARS CoV-2 RNA Rapid NATY Positive (NEGATIVE) A 01/18/20 10:56 Blood Type A POSITIVE 01/19/20 11:02 Reason For Visit: COVID PNEUMONIA Discharge Date Discharge Date: 01/23/20 Discharge Diagnosis All Active Problems (Updated 01/18/20 @ 12:47 by Avila Landa) Osteoarthritis of left knee (Acute) Hypertension (Chronic) GERD (gastroesophageal reflux disease) (Chronic) History of diverticulosis (Chronic) Arthritis (Chronic) Depression (Chronic) Pneumonia due to COVID-19 virus (Acute) Plan of Treatment: Continue with present treatment and follow up plan. Pt is to keep follow up appointment as instructed and take medications as ordered. Discharge Medications Discharge Medications: No Known Drug Allergies Allergy (Verified 01/18/20 13:08) CONTINUE taking the following medications cyclobenzaprine 10 mg PO BID PRN 01/18/20 [History] diclofenac sodium 75 mg PO BID 01/18/20 [History] ibuprofen 800 mg PO DAILY PRN 01/18/20 [History] mirtazapine 7.5 mg PO HS 01/18/20 [History] oxybutynin chloride 5 mg PO HS 01/18/20 [History] ropinirole 0.5 mg PO TID 01/18/20 [History] New Prescriptions benzonatate 100 mg PO TID PRN 10 Days #30 cap 01/23/20 [Rx] prednisone 40 mg PO DAILY 5 Days #10 tab 01/23/20 [Rx] Discharge Disposition Discharge Disposition: Home Discharge Condition: Stable Discharge Plan Discharge Plan Hospital Course: Pt is a 59 year old female pmhx HTN admitted for COVID-19 pneumonia (positive on 01/17). Hospital/treatment course included: Remdesivir, Zosyn, Solumedrol, Bronchodilators, supplemental O2, IVF, I/S, RT support, pneumonia protocol. Convalescent plasma transfused(01/20). Pt responded well to treatments. Labs/imaging: Wbc 9.2, Hgb 12.5, Plt 227, Na 147, K 3.5, Cr 0.71, Glucose 148. Pt required 2-3L on ambulatory pulse ox. Pt was discharged in stable condition, Rx prednisone x 5 days. Home O2 set up and pt instructed to follow up with pcp in 3-5 days. Patient Disposition: 01 HOME, SELF-CARE Condition: Stable Health Concerns: Post Hospitalization: new medications and changes needed to prevent readmission or further decline. Pt educated and given instructions on all concerns. Care Plan Goals: Problem: Respiratory Complications Goal: Improved Uncomplicated Respiratory Status Instructions: Follow provided instructions. Follow up with primary physician as directed. Contact primary care physician or report to the closest Emergency Room if condition worsens. Plan of Treatment: Continue with present treatment and follow up plan. Pt is to keep follow up appointment as instructed and take medications as ordered. Prescriptions: New benzonatate 100 mg Capsule 100 mg PO TID PRN10 Days Qty: 30 RF: 0 prednisone 20 mg tablet 40 mg PO DAILY 5 Days Qty: 10 RF: 0 Continued medroxyprogesterone 5 MG tablet 1.25 mg PO DAILY RF: 0 amlodipine 5 MG tablet 10 mg PO DAILY RF: 0 citalopram 20 MG tablet 20 mg PO DAILY RF: 0 metoprolol tartrate 50 MG tablet 50 mg PO BID RF: 0 gabapentin 300 MG capsule 300 mg PO HS RF: 0 Ergocalciferol [Vitamin D] 50,000 UNT Cap 1 tab PO WEEKLY RF: 0 Estradiol 0.5 MG Tab 1 mg PO DAILY RF: 0 Losartan Potassium [Losartan Potassium 50 mg] 50 MG Tab 50 mg PO BID RF: 0 Omeprazole 40 MG Cap 40 mg PO DAILY RF: 0 Potassium Chloride [Klor-Con 10 (10 mEQ)] 10 MEQ Tab 10 meq PO BID RF: 0 cyclobenzaprine 10 mg Tablet 10 mg PO BID PRN (Reason: Muscle Spasm) RF: 0 ibuprofen 800 mg Tablet 800 mg PO DAILY PRN (Reason: Pain) RF: 0 ropinirole 0.5 mg Tablet 0.5 mg PO TID RF: 0 oxybutynin chloride 5 mg Tablet Extended Release 24hr 5 mg PO HS RF: 0 diclofenac sodium 75 mg tablet,delayed release (DR/EC) 75 mg PO BID RF: 0 mirtazapine 15 mg Tablet 7.5 mg PO HS RF: 0 Follow ups/Referrals Follow ups/Referrals: [facility] [Other] LEANDRO CASH [Primary Care Provider] - 01/30/20 9:30 am (Pull to the back of office and call when you arrive. ) Instructions Instructions: Incentive Spirometer, Viral Respiratory Infection, [id number]-Gf-[id number], Home Oxygen Use, Adult, Hand Washing, [id number]-rg-[id number], Droplet Precautions, Atpk-zx-[id number], Contact Precautions, Hsxx-vu-[id number], Hypertension, Phtt-vf-Ihae, Community-Acquired Pneumonia, Adult, Rxyy-uj-Cbuy Stand Alone Forms: Excuse From Work or School, Convalescent Plasma, Precautions for COVID19, Patient Portal, Social Distancing
[2020-01-23] MEDS: COZAAR PO SCH (08:33)
[2020-01-23] MEDS: CELEXA PO SCH (08:33)
[2020-01-23] MEDS: LOVENOX INJ 30 MG SYR SC SCH (08:34)
[2020-01-23] MEDS: LOPRESSOR TAB 50 MG PO SCH (08:34)
[2020-01-23] MEDS: ESTRACE PO SCH (08:34)
[2020-01-23] MEDS: MICRO K EXTEN CAP 10 MEQ PO SCH (08:34)
[2020-01-23] MEDS: PriLOSEC PO SCH (08:35)
[2020-01-23] MEDS: SOLU-Medrol 40 MG VIAL IVP SCH (08:35)
[2020-01-23] MEDS: NORVASC TAB 10 MG PO SCH (08:35)
[2020-01-23] MEDS: PROVERA PO SCH (08:35)
[2020-01-23] MEDS: TRICOR TAB 160 MG PO SCH (08:35)
[2020-01-23] MEDS: VITAMIN D3 125 mcg (5,000 UNITS) PO SCH (08:36)
[2020-01-23] MEDS: VITAMIN A PO SCH (08:36)
[2020-01-23] MEDS: ZINC SULFATE PO SCH (08:36)
[2020-01-23] MEDS ORDERED: MILK OF MAGNESIA PO SCH (09:00)
[2020-01-23] MEDS: DUONEB 0.5 MG/3 MG (3 mL) NEB SCH ×2 (09:03→12:01)
[2020-01-23] MEDS: PULMICORT NEB TX 0.5 MG NEB SCH (09:03)
[2020-01-23] MEDS: ROBITUSSIN DM PO PRN (09:16)
[2020-01-23] MEDS ORDERED: COLACE CAP 100 MG PO SCH (21:00)
== END 2020-01-23 14:20 | disposition home or self-care (01) | DRG 177 ==
LOC: ER 10:16 → ICU 12:43
PROVIDERS: ADMIT Family Medicine; ATTEND Family Medicine
DX: J12.89 Other viral pneumonia; R26.89 Other abnormalities of gait and mobility; R50.9 Fever, unspecified; U07.1 COVID-19; I10 Essential (primary) hypertension

== ENCOUNTER 2022-12-28 14:38 | Observation (INO) ==
[2022-12-28 15:00] VITALS: BMI 38.5
--- NOTE | 2022-12-28 15:06 | DR.NAUSEAF ---
HPI Time Seen Time Seen by Provider: 12/28/22 15:05 Primary Care Physician Primary Care Physician: CASH Complaints Chief Complaint Doctors Comments: 62 y/o female presents for evaluation. Developed sudden onset of right upper quadrant abdominal pain this a.m., was mild, worsened after eating. Pain is sharp, radiates to the right flank. Associated with nausea and vomiting. Had a similar episode here few weeks ago, work-up was negative at that time, which included a CAT scan. Nothing makes it better, worswened after eating. Pain worsened today after taking a few bites of lunch. Patient still has her gallbladder. Denies fever, chills, change in the color of her stool, bladder issues. Has been constipated for the past 2 days. Chief Complaint:: PATIENT C/O RUQ PAIN AND NAUSEA. PATIENT STATES SHE HAS BEEN HAVING THESE PAINS ON AND OFF. PATIENT HAS BEEN TO THE ED AND HAD A CT SCAN. PATIENT STATES SHE IS HAVING PAIN THAT RADIATES AROUND TO HER BACK. PATIENT STATES THE PAIN HIT HER ALL OF A SUDDEN THIS MORNING. PATIENT IS NOTED TO BE ACTIVLY VOMITING IN TRIAGE. COVID-19 Coronavirus risk:travel/contact w/high risk person: No Has patient experienced Coronavirus symptoms: No Source History Provided: Patient Mode of Arrival Mode of Arrival: Wheelchair Timing Onset of Chief Complaint: 12/28/22 PMH PMH Past Medical History: Yes Past Medical History: Arthritis and Hypertension Past Medical History Comment: [facility] Past Surgical History: Yes Surgical History: Ortho Surgery Family History History of Family Medical Conditions: Yes Family Medical History: Diabetes Mellitus, MA and Hypertension Social History Does any household member use tobacco: No Alcohol Use: None Do you use any recreational Drugs:: No Lives With: Family Lives Where: Home Travel Risk Coronavirus risk:travel/contact w/high risk person: No Has patient experienced Coronavirus symptoms: No Infectious screening In the last 2 months have you had wt loss of >10#?: NO Have you had fever, night sweats or hemotysis?: No Have you traveled outside the country in the last 6 months?: No Isolation: Standard ROS Review of Systems Constitutional: Weakness Eyes: No Symptoms Reported ENTM: No Symptoms Reported Respiratoy: No Symptoms Reported Cardiovascular: No Symptoms Reported Gastrointestinal/Abdominal: See HPI Genitourinary: No Symptoms Reported Neurological: No Symptoms Reported Musculoskeletal: No Symptoms Reported Integumentary: No Symptoms Reported Hematologic/Lymphatic: No Symptoms Reported All Other Systems: Reviewed and Negative PE Vital Signs Vitals: Vital Signs Temperature 98.1 F Pulse Rate [Right Radial] 76 Pulse Rate 71 Respiratory Rate 18 Respiratory Rate 20 Respiratory Rate 18 Respiratory Rate 20 Respiratory Rate 20 Blood Pressure [Right Arm] 134/73 Blood Pressure 144/77 O2 Sat by Pulse Oximetry 100 O2 Sat by Pulse Oximetry 97 General General Appearance: Alert and In Distress Eyes Eye exam: PERRL and EOMI ENT ENT Exam: Mucous Membranes Moist Neck Neck Exam: Normal Inspection Respiratory Respiratory Exam: Normal Lung Sounds Bilat; negative Accessory Muscle Use or Respiratory Distress Cardiovascular Cardiovascular Exam: Regular Rate, Normal Rhythm and Normal Heart Sounds Abdominal Exam Abdominal Exam: Normal Bowel Sounds, Soft and Tenderness (RUQ, with guarding) Extremities Extremities Exam: Normal Inspection Back Back Exam: Normal Inspection Neurologic Neurological Exam: Alert, Oriented X3 and CN II-XII Intact; negative Motor Sensory Deficit Skin Skin Exam: Warm and Dry COURSE Treatment Treatment: 62 y/o female with RUQ pain today, severe, associated with N/V. W/u initiated. Pt given IV fluids, IV toradol/zofran/dilaudid. 1440 - GB US shows numerous stones, some GBW thickening, slight fluid around the GB. Labs elevated white count at 17,600. Present chemistries overall acceptable. Patient clinically with acute cholecystitis. Will admit for IV fluids, pain control, IV antibiotics. Consult with general surgery, Dr. Vaughan, he will evaluate the patient. Anticipate cholecystectomy tomorrow. Discussed with medicine, Dr. Mcmanus, he will admit to his service for her medical issues. ROR Labs Reviewed Laboratory Results Reviewed?: Yes 12/28/22 15:30 12/28/22 16:05 Laboratory: WBC 17.6 X10^3/uL (3.6-10.0) H 12/28/22 15:30 RBC 4.96 X10^6/uL (3.5-5.4) 12/28/22 15:30 Hgb 14.3 g/dL (12.0-16.0) 12/28/22 15:30 Hct 44.3 % (36.0-47.0) 12/28/22 15:30 MCV 89.2 fL (80.0-100.0) 12/28/22 15:30 MCH 28.8 pg (27.0-34.0) 12/28/22 15:30 MCHC 32.3 g/dL (33.0-35.0) L 12/28/22 15:30 RDW 14.6 % (11.6-16.5) 12/28/22 15:30 Plt Count 269 X10^3/uL (150.0-450.0) 12/28/22 15: MPV 9.8 fL (7.4-11.0) 12/28/22 15:30 Neut % (Auto) 83.0 % (42.0-75.0) H 12/28/22 15:30 Lymph % (Auto) 5.0 % (21.0-51.0) L 12/28/22 15:30 [place] % (Auto) 9.4 % (0.0-13.0) 12/28/22 15:30 Eos % (Auto) 2.5 % (0.9-2.9) 12/28/22 15:30 Baso % (Auto) 0.1 % (0.2-1.0) L 12/28/22 15:30 Neut # (Auto) 14.6 x10^3/uL (2.2-4.8) H 12/28/22 15:30 Lymph # (Auto) 0.9 X10^3/uL (1.3-2.9) L 12/28/22 15:30 [place] # (Auto) 1.7 x10^3/uL (0.3-0.8) H 12/28/22 15:30 Eos # (Auto) 0.4 x10^3/uL (0.0-0.2) H 12/28/22 15:30 Baso # (Auto) 0.0 X10^3/uL (0.0-0.1) 12/28/22 15:30 Absolute Nucleated RBC 0.0 /100WBC 12/28/22 15:30 Sodium 139 mmol/L (136-145) 12/28/22 16:05 Corrected Sodium 140 mmol/L (136-145) 12/28/22 16:05 Potassium 3.6 mmol/L (3.5-5.1) 12/28/22 16:05 Chloride 104 mmol/L (98-107) 12/28/22 16:05 Carbon Dioxide 25.0 mmol/L (21-32) 12/28/22 16:05 BUN 7 mg/dL (7-18) 12/28/22 16:05 Creatinine 0.64 mg/dL (0.55-1.02) 12/28/22 16:05 Est GFR (MDRD) Af Amer > 60 (>60) 12/28/22 16:05 Est GFR (MDRD) Non-Af > 60 (>60) 12/28/22 16:05 Glucose 137 mg/dL (65-99) H 12/28/22 16:05 Calcium 7.8 mg/dL (8.5-10.1) L 12/28/22 16:05 Corrected Calcium 8.4 mg/dL (8.5-10.1) L 12/28/22 16:05 Total Bilirubin 0.80 mg/dL (0.2-1.0) 12/28/22 16:05 AST 29 Units/L (15-37) 12/28/22 16:05 ALT 64 Units/L (12-78) 12/28/22 16:05 Alkaline Phosphatase 158 Units/L (46-116) H 12/28/22 16:05 Total Protein 7.2 g/dL (6.4-8.2) 12/28/22 16:05 Albumin 3.2 g/dL (3.4-5.0) L 12/28/22 16:05 Globulin 4.0 g/dL (2.5-4.5) 12/28/22 16:05 Albumin/Globulin Ratio 0.8 Ratio (1.1-2.1) L 12/28/22 16:05 Lipase 24 Units/L (16-77) 12/28/22 16:05 WBC elevated 17.6K XRAY XRAY Interpreted by: Both X-ray Results: EXAM: GALL BLADDER HISTORY: ; ruq pain Unavailable COMPARISON: None. TECHNIQUE: Multiple browne scale and color flow Doppler images of the right upper quadrant were obtained. FINDINGS: The liver is echogenic/fatty in echotexture and normal in size. No focal intraparenchymal mass or intrahepatic biliary ductal dilatation is observed. The gallbladder shows numerous gallstones filling the gallbladder. The common bile duct is normal in size for age, measuring 2 mm. Gallbladder w all thickening and pericholecystic fluid is also observed. The right kidney is normal in size without focal parenchymal mass or nephrolithiasis. The right kidney measurers 12 x 5 cm. No hydronephrosis or perirenal fluid can be observed. The pancreatic head and body are unremarkable. The pancreatic tail is largely obscured by overlying bowel gas. IMPRESSION: Cholelithiasis with sonographic findings suggesting early acute cholecystitis. This should be confirmed with nuclear medicine HIDA imaging for assurance. Diffusely echogenic/fatty liver, suggesting hepatic steatosis in this patient. No other right upper quadrant sonographic abnormalities are identified. THIS IS AN ELECTRONICALLY VERIFIED FINAL REPORT 12/28/2022 3:59 PM - Electronically signed by Marcio Leggett Opioid Opioid Risk Tool Age (Lokesh box if 16-45): No History of Preadolescent Sexual Abuse: No Total: 0 Total Score Risk Category: Low Risk Copyright: [place] LR predicting aberrant behaviors Discharge Plan Diagnosis Discharge Problem: Acute cholecystitis Discharge Plan Patient Disposition: 09 ADMITTED INPATIENT Condition: Stable Prescriptions: No Action citalopram 20 MG tablet 20 mg PO DAILY metoprolol tartrate 50 MG tablet 50 mg PO BID gabapentin 300 MG capsule 300 mg PO HS Ergocalciferol [Vitamin D] 50,000 UNT Cap 1 tab PO WEEKLY Potassium Chloride [Klor-Con 10 (10 mEQ)] 10 MEQ Tab 10 meq PO BID diclofenac sodium 75 mg tablet,delayed release (DR/EC) 75 mg PO BID Patient Comments: 1 tablet,delayed release (DR/EC) BID Take with food medroxyprogesterone 2.5 mg tablet 2.5 mg PO QDAY estradiol 1 mg tablet 1 mg PO QDAY amlodipine 10 mg tablet 10 mg PO QDAY zolpidem 5 mg tablet 5 mg PO QPM PRN ibandronate 150 mg tablet 150 mg PO MONTHLY Health Concerns: Post Hospitalization: new medications and changes needed to prevent readmission or further decline. Pt educated and given instructions on all concerns. Plan of Treatment: Continue with present treatment and follow up plan. Pt is to keep follow up appointment as instructed and take medications as ordered. Orders to Discharge Patient Discharge Orders: Transfer (Routine); Ordered 12/28/22 Ordered By: Terence Walters Follow ups/Referrals Follow ups/Referrals: LEANDRO CASH [Primary Care Provider] - 3 days
[2022-12-28] MEDS ORDERED: ZOFRAN INJ 4 MG VIAL IVP ONE (15:14)
[2022-12-28] MEDS ORDERED: NS 1,000 ML IV 1,000 ML IV ONE (15:14)
[2022-12-28] MEDS ORDERED: TORADOL 30 MG VIAL IVP ONE (15:14)
[2022-12-28] MEDS ORDERED: DILAUDID INJ IVP ONE (15:14)
[2022-12-28] MEDS ORDERED: DILAUDID INJ ONE (15:17)
[2022-12-28] MEDS ORDERED: NS 1,000 ML IV 1,000 ML ONE (15:18)
[2022-12-28] MEDS ORDERED: TORADOL 30 MG VIAL ONE (15:18)
[2022-12-28] MEDS ORDERED: ZOFRAN INJ 4 MG VIAL ONE (15:18)
[2022-12-28 15:39] LABS: BASOPHILS % (AUTO) 0.1 % (0.2-1.0); EOSINOPHILS # (AUTO) 0.4 x10^3/uL (0.0-0.2); EOSINOPHILS % (AUTO) 2.5 % (0.9-2.9); HEMATOCRIT 44.3 % (36.0-47.0); HEMOGLOBIN 14.3 g/dL (12.0-16.0); LYMPHOCYTES # (AUTO) 0.9 X10^3/uL (1.3-2.9); MEAN CORPUSCULAR HEMOGLOBIN 28.8 pg (27.0-34.0); MEAN CORPUSCULAR HGB CONC 32.3 g/dL (33.0-35.0); MEAN CORPUSCULAR VOLUME 89.2 fL (80.0-100.0); MEAN PLATELET VOLUME 9.8 fL (7.4-11.0); MONOCYTES # (AUTO) 1.7 x10^3/uL (0.3-0.8); MONOCYTES % (AUTO) 9.4 % (0.0-13.0); NEUTROPHILS # (AUTO) 14.6 x10^3/uL (2.2-4.8); PLATELET COUNT 269 X10^3/uL (150.0-450.0); RED BLOOD COUNT 4.96 X10^6/uL (3.5-5.4); RED CELL DISTRIBUTION WIDTH 14.6 % (11.6-16.5); WHITE BLOOD COUNT 17.6 X10^3/uL (3.6-10.0)
[2022-12-28 15:50] LABS: CHLORIDE 104 mmol/L (98-107)
--- NOTE | 2022-12-28 15:56 | RAD ---
EXAM:CHEST, 1 VIEWHISTORY:RUQ ABD PAIN, CHEST PAIN;COMPARISON:02/26/2020TECHNIQUE:Sing le frontal chest radiographFINDINGS:Cardiomediastinal silhouette within normal limits. Lungs clear. Pleural spaces are clear. Bones unremarkable. Mild right hemidiaphragm elevation again noted.IMPRESSION:No active pulmonary disease.THIS IS AN ELECTRONICALLY VERIFIED FINAL [id number]/28/2022 3:52 PM - Electronically signed by Henry Ochoa MD
--- NOTE | 2022-12-28 16:02 | US ---
EXAM:GALL BLADDERHISTORY:; ruq pain UnavailableCOMPARISON:None.TECHNIQUE:[facility] tiple browne scale and color flow Doppler images of the right upper quadrant were obtained.FINDINGS:The liver is echogenic/fatty in echotexture and normal in size.No focal intraparenchymal mass or intrahepatic biliary ductal dilatation is observed. The gallbladder shows numerous gallstones filling the gallbladder.The common bile duct is normal in size for age, measuring 2 mm. Gallbladder wall thickening and pericholecystic fluid is also observed.The right kidney is normal in size without focal parenchymal mass or nephrolithiasis. The right kidney measurers 12 x 5 cm. No hydronephrosis or perirenal fluid can be observed.The pancreatic head and body are unremarkable. The pancreatic tail is largely obscured by overlying bowel gas.IMPRESSION:Cholelithiasis with sonographic findings suggesting early acute cholecystitis.This should be confirmed with nuclear medicine HIDA imaging for assurance.Diffusely echogenic/fatty liver, suggesting hepatic steatosis in this patient.No other right upper quadrant sonographic abnormalities are identified.THIS IS AN ELECTRONICALLY VERIFIED FINAL [id number]/28/2022 3:59 PM - Electronically signed by Marcio Leggett
[2022-12-28 16:27] LABS: ALANINE AMINOTRANSFERASE 64 Units/L (12-78); ALBUMIN 3.2 g/dL (3.4-5.0); ALKALINE PHOSPHATASE 158 Units/L (46-116); ASPARTATE AMINO TRANSFERASE 29 Units/L (15-37); BLOOD UREA NITROGEN 7 mg/dL (7-18); CALCIUM 7.8 mg/dL (8.5-10.1); COR CA(FOR HYPOALB) 8.4 mg/dL (8.5-10.1); COR NA(FOR HYPERGLY) 140 mmol/L (136-145); CREATININE 0.64 mg/dL (0.55-1.02); GLUCOSE 137 mg/dL (65-99); LIPASE 24 Units/L (16-77); POTASSIUM 3.6 mmol/L (3.5-5.1); SODIUM 139 mmol/L (136-145); TOTAL PROTEIN 7.2 g/dL (6.4-8.2); eGFR NON BLACK RACES > 60 (>60)
[2022-12-28] MEDS ORDERED: ZOSYN VIAL 3.375 GRAMS IV ONE (16:28)
[2022-12-28] MEDS ORDERED: NS 100 ML IV 100 ML ONE (16:28)
[2022-12-28] MEDS: ZOSYN VIAL 3.375 GRAMS 3.375 G in NS 100 ML IV 100 ML IV SCH ×2 (17:00→22:42)
--- NOTE | 2022-12-28 17:05 | EKG ---
Test Reason : pre op Blood Pressure : */* mmHG Vent. Rate : 74 BPM Atrial Rate : 74 BPM P-R Int : 144 ms QRS Dur : 80 ms QT Int : 388 ms P-R-T Axes : 12 21 0 degrees QTc Int : 430 ms Normal sinus rhythm Abnormal ECG No previous ECGs available Confirmed by Sami Ramírez ([id number]) on 12/29/2022 12:14:46 PM Referred By: Confirmed By: Sami Ramírez
[2022-12-28 17:10] LABS: BILIRUBIN,URINE NEGATIVE (NEGATIVE); BLOOD/HEMOGLOBIN,URINE NEGATIVE (NEGATIVE); GLUCOSE, URINE NEGATIVE (NEGATIVE); KETONES,URINE 3+ (NEGATIVE); LEUKOCYTE ESTERASE ,URINE NEGATIVE (NEGATIVE); NITRITES,URINE NEGATIVE (NEGATIVE); PROTEIN,URINE 1+ (NEGATIVE); UROBILINOGEN,URINE 2+ (NORMAL)
[2022-12-28 17:19] LABS: APPEARANCE,URINE CLEAR (CLEAR); BACTERIA,URINE NEGATIVE /HPF (NEGATIVE); COLOR,URINE YELLOW (YELLOW); HYALINE CASTS, URINE FEW /LPF (NEGATIVE); RBC,URINE 0-2 /HPF (0-3); SQUAMOUS EPITHELIAL CELL,UR RARE /HPF (NEGATIVE)
[2022-12-28] MEDS ORDERED: AMBIEN PO PRN (17:40)
[2022-12-28] MEDS ORDERED: DILAUDID INJ IVP PRN (17:40)
[2022-12-28] MEDS ORDERED: CONSULT PHARMACY - POTASSIUM & MAGNESIUM XX SCH (17:40)
[2022-12-28] MEDS: D5 1/2 NS 1,000 ML 1,000 ML IV SCH (17:54)
[2022-12-28] MEDS: ZOFRAN INJ 4 MG VIAL IVP SCH (18:11)
--- NOTE | 2022-12-28 18:50 | EKG ---
Test Reason : irregular rhythm Blood Pressure : */* mmHG Vent. Rate : 82 BPM Atrial Rate : 82 BPM P-R Int : 146 ms QRS Dur : 72 ms QT Int : 386 ms P-R-T Axes : 7 25 13 degrees QTc Int : 450 ms Normal sinus rhythm Nonspecific ST and T wave abnormality Abnormal ECG When compared with ECG of 28-DEC-2022 16:58, (Unconfirmed) No significant change was found Confirmed by Sami Ramírez ([id number]) on 12/29/2022 12:14:32 PM Referred By: Confirmed By: Sami Ramírez
[2022-12-28] MEDS: LOPRESSOR TAB 50 MG PO SCH (20:54)
[2022-12-28] MEDS: NEURONTIN CAP 300 MG PO SCH (20:55)
[2022-12-28] MEDS ORDERED: NS + KCL 20 MEQ/L 1,000 ML IV SCH (21:00)
[2022-12-28] MEDS ORDERED: VALIUM PO PRN (22:55)
[2022-12-28] MEDS ORDERED: HIBICLENS WASH ONE (23:47)
[2022-12-29] MEDS: D5 1/2 NS 1,000 ML 1,000 ML IV SCH ×2 (01:40→09:43)
[2022-12-29] MEDS: ZOFRAN INJ 4 MG VIAL IVP SCH ×4 (01:47→23:40)
[2022-12-29 04:44] LABS: BASOPHILS % (AUTO) 0.1 % (0.2-1.0); EOSINOPHILS % (AUTO) 0.1 % (0.9-2.9); HEMOGLOBIN 12.4 g/dL (12.0-16.0); LYMPHOCYTES # (AUTO) 0.5 X10^3/uL (1.3-2.9); LYMPHOCYTES % (AUTO) 2.5 % (21.0-51.0); MEAN CORPUSCULAR HGB CONC 33.4 g/dL (33.0-35.0); MEAN CORPUSCULAR VOLUME 86.9 fL (80.0-100.0); MEAN PLATELET VOLUME 10.1 fL (7.4-11.0); MONOCYTES # (AUTO) 2.5 x10^3/uL (0.3-0.8); MONOCYTES % (AUTO) 11.6 % (0.0-13.0); NEUTROPHILS # (AUTO) 18.5 x10^3/uL (2.2-4.8); NEUTROPHILS % (AUTO) 85.7 % (42.0-75.0); PLATELET COUNT 317 X10^3/uL (150.0-450.0); RED BLOOD COUNT 4.26 X10^6/uL (3.5-5.4); RED CELL DISTRIBUTION WIDTH 13.7 % (11.6-16.5); WHITE BLOOD COUNT 21.6 X10^3/uL (3.6-10.0)
[2022-12-29 04:54] LABS: ALANINE AMINOTRANSFERASE 47 Units/L (12-78); ALBUMIN 2.2 g/dL (3.4-5.0); ALKALINE PHOSPHATASE 132 Units/L (46-116); ASPARTATE AMINO TRANSFERASE 30 Units/L (15-37); BLOOD UREA NITROGEN 4 mg/dL (7-18); CALCIUM 6.5 mg/dL (8.5-10.1); CARBON DIOXIDE 21.1 mmol/L (21-32); CHLORIDE 103 mmol/L (98-107); COR CA(FOR HYPOALB) 7.9 mg/dL (8.5-10.1); COR NA(FOR HYPERGLY) 137 mmol/L (136-145); CREATININE 0.56 mg/dL (0.55-1.02); GLUCOSE 163 mg/dL (65-99); POTASSIUM 3.5 mmol/L (3.5-5.1); SODIUM 135 mmol/L (136-145); TOTAL PROTEIN 5.4 g/dL (6.4-8.2); eGFR NON BLACK RACES > 60 (>60)
[2022-12-29 05:09] LABS: PLATELET MORPHOLOGY COMMENT NORMAL (NORMAL)
[2022-12-29] MEDS: ZOSYN VIAL 3.375 GRAMS 3.375 G in NS 100 ML IV 100 ML IV SCH ×3 (06:12→22:00)
[2022-12-29] MEDS ORDERED: CONSULT PHARMACY - POTASSIUM & MAGNESIUM XX SCH (07:00)
--- NOTE | 2022-12-29 08:06 | DR.H&P ---
H&P History & Physical for Day of: H&P Date: 12/28/22 Chief Complaint Chief Complaint: Right upper quadrant pain Allergies Allergies Allergy/AdvReac Type Severity Reaction Status Date / Time No Known Drug Allergies Allergy Verified 01/18/20 13:08 History of Present Illness History of Present Illness: Patient is a 62-year-old female with a past medical history of hypertension, Parkinson's disease, arthritis, presenting with right upper quadrant pain that had been intermittent for the past month. She states that for the past day pain has progressively increased and she has been feeling nauseous. Labs/imaging: WBC 17.6, hemoglobin 14.3, platelets 269, sodium 139, potassium 3.6, creatinine 0.64, glucose 137, UA negative, ultrasound of the gallbladder revealed: Cholelithiasis with sonographic findings suggesting early acute cholecystitis. Chest x-ray revealed no acute cardiopulmonary findings. Patient was admitted for acute cholecystitis. We will keep n.p.o. at this time. Start on IV fluids D5 half-normal saline at 125 mL/h, continue with IV antibiot ics Zosyn every 8 hours. General surgery has been consulted. We will follow-up with recommendations and plan. Continue closely monitor and follow-up labs/imaging. Past Medical History Past Medical History: Arthritis and Hypertension Past Surgical History Surgical History: Ortho Surgery Family History Family Medical History: Diabetes Mellitus, Heart Failure and Hypertension Social History Does patient currently use any type of tobacco product: No Have you used tobacco products in the last 12 months: No Type of Tobacco Use: None Does any household member use tobacco: No Alcohol Use: None Drug Use: None Medications Home Medications: Home Medications Medication Instructions Recorded Confirmed Type Ergocalciferol [Vitamin D] 1 tab PO WEEKLY 04/16/13 12/28/22 History Potassium Chloride [Klor-Con 10 10 meq PO BID 04/16/13 12/28/22 History (10 mEQ)] citalopram 20 mg tablet 20 mg PO DAILY 04/16/13 12/28/22 History gabapentin 300 mg capsule 300 mg PO HS 04/16/13 12/28/22 History metoprolol tartrate 50 mg tablet 50 mg PO BID 04/16/13 12/28/22 History diclofenac sodium 75 mg 75 mg PO BID 01/18/20 12/28/22 History tablet,delayed release amlodipine 10 mg tablet 10 mg PO QDAY 12/28/22 12/28/22 History estradiol 1 mg tablet 1 mg PO QDAY 12/28/22 12/28/22 History ibandronate 150 mg tablet 150 mg PO MONTHLY 12/28/22 12/28/22 History medroxyprogesterone 2.5 mg tablet 2.5 mg PO QDAY 12/28/22 12/28/22 History zolpidem 5 mg tablet 5 mg PO QPM PRN 12/28/22 12/28/22 History Labs 12/29/22 04:15 12/29/22 04:15 Labs: Laboratory WBC 21.6 X10^3/uL (3.6-10.0) H 12/29/22 04:15 RBC 4.26 X10^6/uL (3.5-5.4) 12/29/22 04:15 Hgb 12.4 g/dL (12.0-16.0) 12/29/22 04:15 Hct 37.0 % (36.0-47.0) 12/29/22 04:15 MCV 86.9 fL (80.0-100.0) 12/29/22 04:15 MCH 29.0 pg (27.0-34.0) 12/29/22 04:15 MCHC 33.4 g/dL (33.0-35.0) 12/29/22 04:15 RDW 13.7 % (11.6-16.5) 12/29/22 04:15 Plt Count 317 X10^3/uL (150.0-450.0) 12/29/22 04:15 Plt Count Comment Adequate (ADEQUATE) 12/29/22 04:15 MPV 10.1 fL (7.4-11.0) 12/29/22 04:15 Neut % (Auto) 85.7 % (42.0-75.0) H 12/29/22 04:15 Lymph % (Auto) 2.5 % (21.0-51.0) L 12/29/22 04:15 [place] % (Auto) 11.6 % (0.0-13.0) 12/29/22 04:15 Eos % (Auto) 0.1 % (0.9-2.9) L 12/29/22 04:15 Baso % (Auto) 0.1 % (0.2-1.0) L 12/29/22 04:15 Neut # (Auto) 18.5 x10^3/uL (2.2-4.8) H 12/29/22 04:15 Lymph # (Auto) 0.5 X10^3/uL (1.3-2.9) L 12/29/22 04:15 [place] # (Auto) 2.5 x10^3/uL (0.3-0.8) H 12/29/22 04:15 Eos # (Auto) 0.0 x10^3/uL (0.0-0.2) 12/29/22 04:15 Baso # (Auto) 0.0 X10^3/uL (0.0-0.1) 12/29/22 04:15 Absolute Nucleated RBC 0.0 /100WBC 12/29/22 04:15 Total Counted 100 12/29/22 04:15 Neutrophils % (Manual) 84 % (39-76) H 12/29/22 04:15 Lymphocytes % (Manual) 3 % (13-43) L 12/29/22 04:15 Monocytes % (Manual) 13 % (4-9) H 12/29/22 04:15 Plt Morphology Comment Normal (NORMAL) 12/29/22 04:15 RBC Morphology Normal (NORMAL) 12/29/22 04:15 Sodium 135 mmol/L (136-145) L 12/29/22 04:15 Corrected Sodium 137 mmol/L (136-145) 12/29/22 04:15 Potassium 3.5 mmol/L (3.5-5.1) 12/29/22 04:15 Chloride 103 mmol/L (98-107) 12/29/22 04:15 Carbon Dioxide 21.1 mmol/L (21-32) 12/29/22 04:15 BUN 4 mg/dL (7-18) L 12/29/22 04:15 Creatinine 0.56 mg/dL (0.55-1.02) 12/29/22 04:15 Est GFR (MDRD) Af Amer > 60 (>60) 12/29/22 04:15 Est GFR (MDRD) Non-Af > 60 (>60) 12/29/22 04:15 Glucose 163 mg/dL (65-99) H 12/29/22 04:15 POC Glucose (mg/dL) 162 mg/dL (65-99) H 12/29/22 06:13 Calcium 6.5 mg/dL (8.5-10.1) L 12/29/22 04:15 Corrected Calcium 7.9 mg/dL (8.5-10.1) L 12/29/22 04:15 Magnesium 2.4 mg/dL (2.0-2.9) 12/28/22 16:05 Total Bilirubin 1.00 mg/dL (0.2-1.0) 12/29/22 04:15 AST 30 Units/L (15-37) 12/29/22 04:15 ALT 47 Units/L (12-78) 12/29/22 04:15 Alkaline Phosphatase 132 Units/L (46-116) H 12/29/22 04:15 Total Protein 5.4 g/dL (6.4-8.2) L 12/29/22 04:15 Albumin 2.2 g/dL (3.4-5.0) L 12/29/22 04:15 Globulin 3.2 g/dL (2.5-4.5) 12/29/22 04:15 Albumin/Globulin Ratio 0.7 Ratio (1.1-2.1) L 12/29/22 04:15 Lipase 24 Units/L (16-77) 12/28/22 16:05 Specimen Type Catherized urine 12/28/22 16:59 Urine Color Yellow (YELLOW) 12/28/22 16:59 Urine Appearance Clear (CLEAR) 12/28/22 16:59 Urine pH 7.0 (5.0 - 8.0) 12/28/22 16:59 Ur Specific [place] 1.015 (1.000-1.030) 12/28/22 16:59 Urine Protein 1+ (NEGATIVE) 12/28/22 16:59 Urine Glucose (UA) Negative (NEGATIVE) 12/28/22 16:59 Urine Ketones 3+ (NEGATIVE) 12/28/22 16:59 Urine Blood Negative (NEGATIVE) 12/28/22 16:59 Urine Nitrite Negative (NEGATIVE) 12/28/22 16:59 Urine Bilirubin Negative (NEGATIVE) 12/28/22 16:59 Urine Urobilinogen 2+ (NORMAL) 12/28/22 16:59 Ur Leukocyte Esterase Negative (NEGATIVE) 12/28/22 16:59 Urine RBC 0-2 /HPF (0-3) 12/28/22 16:59 Urine WBC 0-2 /HPF (0-5) 12/28/22 16:59 Ur Squamous Epith Cells Rare /HPF (NEGATIVE) 12/28/22 16:59 Urine Bacteria Negative /HPF (NEGATIVE) 12/28/22 16:59 Hyaline Casts Few /LPF (NEGATIVE) 12/28/22 16:59 Urine Mucus Many /HPF (NEGATIVE) 12/28/22 16:59 Ur Culture Indicated? No/not indicated 12/28/22 16:59 Review of Systems Constitutional: No Symptoms Reported Eyes: No Symptoms Reported ENT: No Symptoms Reported Respiratory: No Symptoms Reported Cardiovascular: No Symptoms Reported Gastrointestinal: Nausea and Abdominal Pain Genitourinary: No Symptoms Reported Musculoskeletal: No Symptoms Reported Skin: No Symptoms Reported Neurological: No Symptoms Reported Physical Exam Vital Signs: Vital Signs Temperature 98.0 F Pulse Rate [Right Radial] 87 Pulse Rate [Right Radial] 86 Pulse Rate [Right Radial] 85 Pulse Rate [Right Radial] 86 Pulse Rate [Right Radial] 85 Pulse Rate [Right Radial] 81 Pulse Rate 84 Respiratory Rate 25 Respiratory Rate 25 Respiratory Rate 25 Respiratory Rate 25 Respiratory Rate 30 Respiratory Rate 30 Blood Pressure [Right Arm] 148/67 Blood Pressure [Right Arm] 149/56 Blood Pressure [Right Arm] 159/73 Blood Pressure [Right Arm] 158/73 Blood Pressure [Right Arm] 154/70 Blood Pressure [Right Arm] 143/67 Blood Pressure 140/65 O2 Sat by Pulse Oximetry 95 O2 Sat by Pulse Oximetry 94 O2 Sat by Pulse Oximetry 94 O2 Sat by Pulse Oximetry 94 O2 Sat by Pulse Oximetry 95 O2 Sat by Pulse Oximetry 94 Oriented: Normal Eyes: Normal Ear: Normal Nose: Normal Throat: Normal Respiratory: Clear Throughout Cardiovascular: Normal : Normal Auscultation: Bowel Sounds: Normal Palpation: Normal Tenderness: RUQ and Moderate Skin: Normal Musculoskeletal: Normal Psychiatric: Normal Mood Description: Calm and Appropriate Affect: Normal Speech Pattern: Clear and Appropriate Assessment/Plan (1) Acute cholecystitis: Narrative Support Text: Keep n.p.o., continue IV fluids and IV antibiotics. General surgery consulted. Status: Acute (2) HTN (hypertension): Qualifiers: Hypertension type: primary hypertension Qualified Code(s): I10 - Essential (primary) hypertension Status: Acute (3) Parkinsons disease: Status: Acute Review H&P Reviewed: Yes Patient was examined?: Yes
[2022-12-29] MEDS: LOPRESSOR TAB 50 MG PO SCH ×2 (08:59→20:34)
[2022-12-29] MEDS ORDERED: K-DUR TAB 20 MEQ PO SCH (09:00)
[2022-12-29] MEDS ORDERED: MEDROXYPROGESTERONE 2.5 MG PO SCH (09:00)
[2022-12-29] MEDS ORDERED: BACTROBAN TOPICAL OINT ONE (09:27)
[2022-12-29] MEDS ORDERED: ANCEF VIAL 1 GRAM ONE (11:21)
[2022-12-29] MEDS ORDERED: NS 100 ML IV 100 ML ONE (11:21)
[2022-12-29] MEDS ORDERED: LR 1,000 ML IV 1,000 ML IV ONE (11:21)
[2022-12-29] MEDS ORDERED: FENTANYL VIAL INJ 100 mcg ONE (11:24)
[2022-12-29] MEDS ORDERED: DILAUDID INJ ONE (11:24)
[2022-12-29] MEDS ORDERED: VERSED ONE (11:24)
[2022-12-29] MEDS ORDERED: ZOFRAN INJ 4 MG VIAL ONE (11:25)
[2022-12-29] MEDS ORDERED: DIPRIVAN VIAL 20 ML ONE (11:25)
[2022-12-29] MEDS ORDERED: PEPCID 20 MG VIAL ONE (11:25)
[2022-12-29] MEDS ORDERED: OFIRMEV IV 1000 MG VIAL 1,000 MG/100 ML VIAL IV ONE (11:25)
[2022-12-29] MEDS ORDERED: ZEMURON 100 MG VIAL ONE (11:25)
[2022-12-29] MEDS ORDERED: BRIDION ONE (11:25)
[2022-12-29] MEDS ORDERED: TORADOL 30 MG VIAL ONE (11:25)
[2022-12-29] MEDS ORDERED: SUPRANE ONE (12:01)
[2022-12-29] MEDS ORDERED: EPHEDRINE SULFATE INJ ONE (12:33)
[2022-12-29] MEDS ORDERED: DILAUDID INJ IVP PRN ×3 (12:33→13:38)
[2022-12-29] MEDS ORDERED: BENADRYL INJ 50 MG VIAL IVP PRN (12:33)
[2022-12-29] MEDS ORDERED: ZOFRAN INJ 4 MG VIAL IVP PRN (12:33)
[2022-12-29] MEDS ORDERED: NS 1,000 ML IV 1,000 ML ONE (13:31)
[2022-12-29] MEDS ORDERED: ZOSYN VIAL 3.375 GRAMS 3.375 G in NS 100 ML IV 100 ML IV SCH (14:00)
--- NOTE | 2022-12-29 14:50 | PCM.PROG ---
Progress Note Progress Note for Day of Date of Exam: 12/29/22 Subjective Subjective: Patient is a 62-year-old female with a past medical history of hypertension, Parkinson's disease, arthritis, admitted for acute cholecystitis. This morning she reports pain still present in her right upper quadrant. No acute events overnight. Labs/imaging: WBC 21, hemoglobin 12, platelets 317, sodium 135, potassium 3.5, creatinine 0.56, glucose 163, ultrasound of the gallbladder revealed: Cholelithiasis with sonographic findings suggesting early acute cholecystitis. Pt is currently n.p.o. at this time. Continue IV fluids D5 half-normal saline at 125 mL/h, continue with IV antibiotics Zosyn every 8 hours. General surgery has been consulted. Plan for cholecystectomy today. Otherwise we will continue with current treatment plan. Continue to closely monitor and follow-up labs/imaging. Past Medical Family Social History Allergies: Allergies No Known Drug Allergies Allergy (Verified 01/18/20 13:08) Review of Systems ROS changes noted: see HPI Vital Signs and I&O's Vital Signs: Vital Signs Temperature 97.7 F Temperature 97.8 F Pulse Rate [Right Radial] 80 Pulse Rate [Right Radial] 80 Pulse Rate [Right Radial] 82 Pulse Rate [Right Radial] 83 Pulse Rate [Right Radial] 82 Pulse Rate 79 Pulse Rate 80 Pulse Rate 78 Pulse Rate 79 Pulse Rate 79 Pulse Rate 79 Pulse Rate 80 Pulse Rate 80 Respiratory Rate 17 Respiratory Rate 18 Respiratory Rate 18 Respiratory Rate 18 Respiratory Rate 17 Respiratory Rate 16 Respiratory Rate 16 Respiratory Rate 16 Respiratory Rate 16 Respiratory Rate 17 Respiratory Rate 28 Respiratory Rate 28 Respiratory Rate 26 Respiratory Rate 29 Respiratory Rate 29 Blood Pressure [Right Arm] 142/64 Blood Pressure [Right Arm] 145/67 Blood Pressure [Right Arm] 149/66 Blood Pressure [Right Arm] 179/75 Blood Pressure [Right Arm] 152/65 Blood Pressure 106/52 Blood Pressure 105/52 Blood Pressure 103/55 Blood Pressure 106/52 Blood Pressure 108/54 Blood Pressure 101/50 Blood Pressure 100/45 Blood Pressure 157/73 O2 Sat by Pulse Oximetry 96 O2 Sat by Pulse Oximetry 96 O2 Sat by Pulse Oximetry 96 O2 Sat by Pulse Oximetry 96 O2 Sat by Pulse Oximetry 95 O2 Sat by Pulse Oximetry 96 O2 Sat by Pulse Oximetry 96 O2 Sat by Pulse Oximetry 96 O2 Sat by Pulse Oximetry 95 O2 Sat by Pulse Oximetry 95 O2 Sat by Pulse Oximetry 97 O2 Sat by Pulse Oximetry 95 O2 Sat by Pulse Oximetry 96 Intake and Output: Intake & Output 12/26/22 12/27/22 12/28/22 12/29/22 23:59 23:59 23:59 23:59 Intake Total 1222 / 1222 3321 / 3321 Output Total 800 / 800 1795 / 1795 Balance 422 / 422 1526 / 1526 Physical Exam Oriented: Normal Eyes: Normal Ear: Normal Nose: Normal Throat: Normal Respiratory: Normal Cardiovascular: Normal : Normal Auscultation: Bowel Sounds: Normal Tenderness: RUQ and Moderate Skin: Normal Musculoskeletal: Normal Psychiatric: Normal Mood Description: Calm Affect: Normal Speech Pattern: Clear and Appropriate Laboratory and Diagnostics 12/29/22 04:15 12/29/22 04:15 Labs: Laboratory WBC 21.6 X10^3/uL (3.6-10.0) H 12/29/22 04:15 RBC 4.26 X10^6/uL (3.5-5.4) 12/29/22 04:15 Hgb 12.4 g/dL (12.0-16.0) 12/29/22 04:15 Hct 37.0 % (36.0-47.0) 12/29/22 04:15 MCV 86.9 fL (80.0-100.0) 12/29/22 04:15 MCH 29.0 pg (27.0-34.0) 12/29/22 04:15 MCHC 33.4 g/dL (33.0-35.0) 12/29/22 04:15 RDW 13.7 % (11.6-16.5) 12/29/22 04:15 Plt Count 317 X10^3/uL (150.0-450.0) 12/29/22 04:15 Plt Count Comment Adequate (ADEQUATE) 12/29/22 04:15 MPV 10.1 fL (7.4-11.0) 12/29/22 04:15 Neut % (Auto) 85.7 % (42.0-75.0) H 12/29/22 04:15 Lymph % (Auto) 2.5 % (21.0-51.0) L 12/29/22 04:15 [place] % (Auto) 11.6 % (0.0-13.0) 12/29/22 04:15 Eos % (Auto) 0.1 % (0.9-2.9) L 12/29/22 04:15 Baso % (Auto) 0.1 % (0.2-1.0) L 12/29/22 04:15 Neut # (Auto) 18.5 x10^3/uL (2.2-4.8) H 12/29/22 04:15 Lymph # (Auto) 0.5 X10^3/uL (1.3-2.9) L 12/29/22 04:15 [place] # (Auto) 2.5 x10^3/uL (0.3-0.8) H 12/29/22 04:15 Eos # (Auto) 0.0 x10^3/uL (0.0-0.2) 12/29/22 04:15 Baso # (Auto) 0.0 X10^3/uL (0.0-0.1) 12/29/22 04:15 Absolute Nucleated RBC 0.0 /100WBC 12/29/22 04:15 Total Counted 100 12/29/22 04:15 Neutrophils % (Manual) 84 % (39-76) H 12/29/22 04:15 Lymphocytes % (Manual) 3 % (13-43) L 12/29/22 04:15 Monocytes % (Manual) 13 % (4-9) H 12/29/22 04:15 Plt Morphology Comment Normal (NORMAL) 12/29/22 04:15 RBC Morphology Normal (NORMAL) 12/29/22 04:15 Sodium 135 mmol/L (136-145) L 12/29/22 04:15 Corrected Sodium 137 mmol/L (136-145) 12/29/22 04:15 Potassium 3.5 mmol/L (3.5-5.1) 12/29/22 04:15 Chloride 103 mmol/L (98-107) 12/29/22 04:15 Carbon Dioxide 21.1 mmol/L (21-32) 12/29/22 04:15 BUN 4 mg/dL (7-18) L 12/29/22 04:15 Creatinine 0.56 mg/dL (0.55-1.02) 12/29/22 04:15 Est GFR (MDRD) Af Amer > 60 (>60) 12/29/22 04:15 Est GFR (MDRD) Non-Af > 60 (>60) 12/29/22 04:15 Glucose 163 mg/dL (65-99) H 12/29/22 04:15 POC Glucose (mg/dL) 162 mg/dL (65-99) H 12/29/22 06:13 Calcium 6.5 mg/dL (8.5-10.1) L 12/29/22 04:15 Corrected Calcium 7.9 mg/dL (8.5-10.1) L 12/29/22 04:15 Magnesium 2.4 mg/dL (2.0-2.9) 12/28/22 16:05 Total Bilirubin 1.00 mg/dL (0.2-1.0) 12/29/22 04:15 AST 30 Units/L (15-37) 12/29/22 04:15 ALT 47 Units/L (12-78) 12/29/22 04:15 Alkaline Phosphatase 132 Units/L (46-116) H 12/29/22 04:15 Total Protein 5.4 g/dL (6.4-8.2) L 12/29/22 04:15 Albumin 2.2 g/dL (3.4-5.0) L 12/29/22 04:15 Globulin 3.2 g/dL (2.5-4.5) 12/29/22 04:15 Albumin/Globulin Ratio 0.7 Ratio (1.1-2.1) L 12/29/22 04:15 Lipase 24 Units/L (16-77) 12/28/22 16:05 Specimen Type Catherized urine 12/28/22 16:59 Urine Color Yellow (YELLOW) 12/28/22 16:59 Urine Appearance Clear (CLEAR) 12/28/22 16:59 Urine pH 7.0 (5.0 - 8.0) 12/28/22 16:59 Ur Specific [place] 1.015 (1.000-1.030) 12/28/22 16:59 Urine Protein 1+ (NEGATIVE) 12/28/22 16:59 Urine Glucose (UA) Negative (NEGATIVE) 12/28/22 16:59 Urine Ketones 3+ (NEGATIVE) 12/28/22 16:59 Urine Blood Negative (NEGATIVE) 12/28/22 16:59 Urine Nitrite Negative (NEGATIVE) 12/28/22 16:59 Urine Bilirubin Negative (NEGATIVE) 12/28/22 16:59 Urine Urobilinogen 2+ (NORMAL) 12/28/22 16:59 Ur Leukocyte Esterase Negative (NEGATIVE) 12/28/22 16:59 Urine RBC 0-2 /HPF (0-3) 12/28/22 16:59 Urine WBC 0-2 /HPF (0-5) 12/28/22 16:59 Ur Squamous Epith Cells Rare /HPF (NEGATIVE) 12/28/22 16:59 Urine Bacteria Negative /HPF (NEGATIVE) 12/28/22 16:59 Hyaline Casts Few /LPF (NEGATIVE) 12/28/22 16:59 Urine Mucus Many /HPF (NEGATIVE) 12/28/22 16:59 Ur Culture Indicated? No/not indicated 12/28/22 16:59 Plan (1) Acute cholecystitis: Status: Acute (2) HTN (hypertension): Status: Acute Qualifiers: Hypertension type: primary hypertension Qualified Code(s): I10 - Essential (primary) hypertension (3) Parkinsons disease: Status: Acute
[2022-12-29] MEDS ORDERED: K-DUR TAB 20 MEQ PO ONE (15:29)
[2022-12-29] MEDS: PROVERA PO SCH (15:33)
[2022-12-29] MEDS: CELEXA PO SCH (15:33)
[2022-12-29] MEDS: D5 NS 1,000 ML IV 1,000 ML IV SCH ×2 (15:52→22:21)
[2022-12-29] MEDS: NEURONTIN CAP 300 MG PO SCH (20:34)
[2022-12-30] MEDS: ZOFRAN INJ 4 MG VIAL IVP SCH ×5 (00:17→13:26)
[2022-12-30 05:00] LABS: BASOPHILS % (AUTO) 0.3 % (0.2-1.0); EOSINOPHILS # (AUTO) 0.3 x10^3/uL (0.0-0.2); EOSINOPHILS % (AUTO) 1.8 % (0.9-2.9); HEMATOCRIT 35.9 % (36.0-47.0); HEMOGLOBIN 11.6 g/dL (12.0-16.0); LYMPHOCYTES # (AUTO) 0.8 X10^3/uL (1.3-2.9); MEAN CORPUSCULAR HEMOGLOBIN 28.4 pg (27.0-34.0); MEAN CORPUSCULAR HGB CONC 32.2 g/dL (33.0-35.0); MEAN PLATELET VOLUME 10.4 fL (7.4-11.0); MONOCYTES % (AUTO) 12.1 % (0.0-13.0); NEUTROPHILS # (AUTO) 13.1 x10^3/uL (2.2-4.8); NEUTROPHILS % (AUTO) 80.8 % (42.0-75.0); PLATELET COUNT 308 X10^3/uL (150.0-450.0); RED BLOOD COUNT 4.08 X10^6/uL (3.5-5.4); RED CELL DISTRIBUTION WIDTH 14.1 % (11.6-16.5); WHITE BLOOD COUNT 16.2 X10^3/uL (3.6-10.0)
[2022-12-30 05:16] LABS: ALANINE AMINOTRANSFERASE 37 Units/L (12-78); ALBUMIN 1.8 g/dL (3.4-5.0); ALKALINE PHOSPHATASE 137 Units/L (46-116); ASPARTATE AMINO TRANSFERASE 29 Units/L (15-37); BLOOD UREA NITROGEN 5 mg/dL (7-18); CARBON DIOXIDE 20.8 mmol/L (21-32); CHLORIDE 108 mmol/L (98-107); COR NA(FOR HYPERGLY) 139 mmol/L (136-145); CREATININE 0.54 mg/dL (0.55-1.02); GLUCOSE 123 mg/dL (65-99); POTASSIUM 3.5 mmol/L (3.5-5.1); SODIUM 138 mmol/L (136-145); TOTAL PROTEIN 5.1 g/dL (6.4-8.2); eGFR NON BLACK RACES > 60 (>60)
[2022-12-30 05:30] LABS: COR CA(FOR HYPOALB) 8.2 mg/dL (8.5-10.1)
[2022-12-30 05:37] LABS: CALCIUM 6.4 mg/dL (8.5-10.1)
[2022-12-30] MEDS: D5 NS 1,000 ML IV 1,000 ML IV SCH (05:39)
[2022-12-30] MEDS: ZOSYN VIAL 3.375 GRAMS 3.375 G in NS 100 ML IV 100 ML IV SCH (05:40)
[2022-12-30] MEDS ORDERED: CONSULT PHARMACY - POTASSIUM & MAGNESIUM XX SCH (07:00)
[2022-12-30] MEDS ORDERED: LOVENOX INJ 40 MG SYR SC SCH (09:00)
[2022-12-30] MEDS ORDERED: K-DUR TAB 20 MEQ PO SCH (09:00)
[2022-12-30] MEDS: CELEXA PO SCH (09:15)
[2022-12-30] MEDS: PROVERA PO SCH (09:15)
[2022-12-30] MEDS: LOPRESSOR TAB 50 MG PO SCH (09:15)
[2022-12-30 09:27] VITALS: BP 133/61; PULSE 76; RESP 23; TEMP 98.3; O2SAT 99
--- NOTE | 2022-12-30 09:54 | DR.PROGNOT ---
HOSPITAL PROGRESS NOTE Progress Note for Day of: Progress Note Date: 12/30/22 Chief Complaint Chief Complaint: Feeling better today with less abdominal pain after her lap chandrakant. Only mild drainage in [place]. No calf tenderness. White count is coming down. Serum bilirubin and liver function test are normal.. patient is afebrile Past Medical Family Social History Allergies: Allergies No Known Drug Allergies Allergy (Verified 01/18/20 13:08) Review Of Systems Changes in ROS: see HPI Vital Signs Vital Signs: Vital Signs Temperature 98.3 F Temperature 98.3 F Temperature 98.3 F Temperature 99.2 F Pulse Rate [Right Radial] 76 Pulse Rate [Right Radial] 76 Pulse Rate [Right Radial] 76 Pulse Rate [Right Radial] 80 Pulse Rate [Right Radial] 82 Pulse Rate [Right Radial] 78 Pulse Rate [Right Radial] 76 Respiratory Rate 23 Respiratory Rate 23 Respiratory Rate 23 Respiratory Rate 24 Respiratory Rate 26 Respiratory Rate 24 Respiratory Rate 24 Respiratory Rate 20 Blood Pressure [Right Arm] 133/61 Blood Pressure [Right Arm] 133/61 Blood Pressure [Right Arm] 133/61 Blood Pressure [Right Arm] 125/66 Blood Pressure [Right Arm] 125/61 Blood Pressure [Right Arm] 126/53 Blood Pressure [Right Arm] 120/59 Blood Pressure [Right Arm] 120/57 O2 Sat by Pulse Oximetry 99 O2 Sat by Pulse Oximetry 99 O2 Sat by Pulse Oximetry 99 O2 Sat by Pulse Oximetry 100 O2 Sat by Pulse Oximetry 100 O2 Sat by Pulse Oximetry 99 O2 Sat by Pulse Oximetry 100 O2 Sat by Pulse Oximetry 99 Physical Exam Oriented: Normal Eyes: Normal Ear: Normal Nose: Normal Throat: Normal Respiratory: Normal Cardiovascular: Normal : Normal GI:Auscultation: Normal GI:Palpation: Normal GI: Tenderness: Other (Soft and flat abdomen with diffuse tenderness, no rebound tenderness, bowel sounds were present.) Skin: Normal Musculoskeletal: Normal Psychiatric: Normal Mood Description: Calm Affect: Normal Speech Pattern: Clear Laboratory and Diagnostics 12/30/22 04:22 12/30/22 04:22 Labs: Laboratory WBC 16.2 X10^3/uL (3.6-10.0) H 12/30/22 04:22 RBC 4.08 X10^6/uL (3.5-5.4) 12/30/22 04:22 Hgb 11.6 g/dL (12.0-16.0) L 12/30/22 04:22 Hct 35.9 % (36.0-47.0) L 12/30/22 04:22 MCV 88.0 fL (80.0-100.0) 12/30/22 04:22 MCH 28.4 pg (27.0-34.0) 12/30/22 04:22 MCHC 32.2 g/dL (33.0-35.0) L 12/30/22 04:22 RDW 14.1 % (11.6-16.5) 12/30/22 04:22 Plt Count 308 X10^3/uL (150.0-450.0) 12/30/22 04:22 Plt Count Comment Adequate (ADEQUATE) 12/29/22 04:15 MPV 10.4 fL (7.4-11.0) 12/30/22 04:22 Neut % (Auto) 80.8 % (42.0-75.0) H 12/30/22 04:22 Lymph % (Auto) 5.0 % (21.0-51.0) L 12/30/22 04:22 [place] % (Auto) 12.1 % (0.0-13.0) 12/30/22 04:22 Eos % (Auto) 1.8 % (0.9-2.9) 12/30/22 04:22 Baso % (Auto) 0.3 % (0.2-1.0) 12/30/22 04:22 Neut # (Auto) 13.1 x10^3/uL (2.2-4.8) H 12/30/22 04:22 Lymph # (Auto) 0.8 X10^3/uL (1.3-2.9) L 12/30/22 04:22 [place] # (Auto) 2.0 x10^3/uL (0.3-0.8) H 12/30/22 04:22 Eos # (Auto) 0.3 x10^3/uL (0.0-0.2) H 12/30/22 04:22 Baso # (Auto) 0.0 X10^3/uL (0.0-0.1) 12/30/22 04:22 Absolute Nucleated RBC 0.0 /100WBC 12/30/22 04:22 Total Counted 100 12/29/22 04:15 Neutrophils % (Manual) 84 % (39-76) H 12/29/22 04:15 Lymphocytes % (Manual) 3 % (13-43) L 12/29/22 04:15 Monocytes % (Manual) 13 % (4-9) H 12/29/22 04:15 Plt Morphology Comment Normal (NORMAL) 12/29/22 04:15 RBC Morphology Normal (NORMAL) 12/29/22 04:15 Sodium 138 mmol/L (136-145) 12/30/22 04:22 Corrected Sodium 139 mmol/L (136-145) 12/30/22 04:22 Potassium 3.5 mmol/L (3.5-5.1) 12/30/22 04:22 Chloride 108 mmol/L (98-107) H 12/30/22 04:22 Carbon Dioxide 20.8 mmol/L (21-32) L 12/30/22 04:22 BUN 5 mg/dL (7-18) L 12/30/22 04:22 Creatinine 0.54 mg/dL (0.55-1.02) L 12/30/22 04:22 Est GFR (MDRD) Af Amer > 60 (>60) 12/30/22 04:22 Est GFR (MDRD) Non-Af > 60 (>60) 12/30/22 04:22 Glucose 123 mg/dL (65-99) H 12/30/22 04:22 POC Glucose (mg/dL) 127 mg/dL (65-99) H 12/30/22 05:30 Calcium 6.4 mg/dL (8.5-10.1) L 12/30/22 04:22 Corrected Calcium 8.2 mg/dL (8.5-10.1) L 12/30/22 04:22 Magnesium 2.4 mg/dL (2.0-2.9) 12/28/22 16:05 Total Bilirubin 0.70 mg/dL (0.2-1.0) 12/30/22 04:22 AST 29 Units/L (15-37) 12/30/22 04:22 ALT 37 Units/L (12-78) 12/30/22 04:22 Alkaline Phosphatase 137 Units/L (46-116) H 12/30/22 04:22 Total Protein 5.1 g/dL (6.4-8.2) L 12/30/22 04:22 Albumin 1.8 g/dL (3.4-5.0) L 12/30/22 04:22 Globulin 3.3 g/dL (2.5-4.5) 12/30/22 04:22 Albumin/Globulin Ratio 0.5 Ratio (1.1-2.1) L 12/30/22 04:22 Lipase 24 Units/L (16-77) 12/28/22 16:05 Specimen Type Catherized urine 12/28/22 16:59 Urine Color Yellow (YELLOW) 12/28/22 16:59 Urine Appearance Clear (CLEAR) 12/28/22 16:59 Urine pH 7.0 (5.0 - 8.0) 12/28/22 16:59 Ur Specific [place] 1.015 (1.000-1.030) 12/28/22 16:59 Urine Protein 1+ (NEGATIVE) 12/28/22 16:59 Urine Glucose (UA) Negative (NEGATIVE) 12/28/22 16:59 Urine Ketones 3+ (NEGATIVE) 12/28/22 16:59 Urine Blood Negative (NEGATIVE) 12/28/22 16:59 Urine Nitrite Negative (NEGATIVE) 12/28/22 16:59 Urine Bilirubin Negative (NEGATIVE) 12/28/22 16:59 Urine Urobilinogen 2+ (NORMAL) 12/28/22 16:59 Ur Leukocyte Esterase Negative (NEGATIVE) 12/28/22 16:59 Urine RBC 0-2 /HPF (0-3) 12/28/22 16:59 Urine WBC 0-2 /HPF (0-5) 12/28/22 16:59 Ur Squamous Epith Cells Rare /HPF (NEGATIVE) 12/28/22 16:59 Urine Bacteria Negative /HPF (NEGATIVE) 12/28/22 16:59 Hyaline Casts Few /LPF (NEGATIVE) 12/28/22 16:59 Urine Mucus Many /HPF (NEGATIVE) 12/28/22 16:59 Ur Culture Indicated? No/not indicated 12/28/22 16:59 Assessment and Plan 1: Postop diagnostic laparoscopy. Lysis of abdominal adhesions. Laparoscopic cholecystectomy. Same IV antibiotics, will remove Ovidio-Garcia later on today and will follow the patient in 10 days. Problem Patient Problems: Patient Problems Acute cholecystitis (Acute) K81.0
--- NOTE | 2023-01-03 10:38 | W.DIS.FURT ---
Summary of Discharge Discharge Summary of Date Date of Exam: 12/30/22 Admission Date Date of Admission: 12/28/22 Admission Diagnosis Patient Problems (Updated 12/29/22 @ 08:05 by Pancho Mcmanus) Acute cholecystitis (Acute) K81.0 Hospital Course: Patient is a 62-year-old female with a past medical history of hypertension, Parkinson's disease, arthritis, admitted for acute cholecystitis. Her hospital/ treatment course included: IV fluids D5 half-normal saline at 125 mL/h, continue with IV antibiotics Zosyn every 8 hours. General surgery was consulted and patient had cholecystectomy. Pt did well post-op and symptoms significantly improved. Pt discharged in stable condition. Rx cipro. Instructed to follow up with pcp and general surgery in 1 week. Vital Signs: Vital Signs (72 hours) 12/28/22 14:39 12/28/22 15:31 12/28/22 16:07 Temperature 98.1 F Pulse Rate 71 Pulse Rate [Right Radial] Respiratory Rate 20 20 20 Blood Pressure 144/77 Blood Pressure [Right Arm] O2 Sat by Pulse Oximetry 97 Oxygen Delivery Method Room Air Oxygen Flow Rate 12/28/22 16:09 12/28/22 16:01 12/28/22 16:37 Temperature Pulse Rate Pulse Rate [Right Radial] 76 Respiratory Rate 18 18 18 Blood Pressure Blood Pressure [Right Arm] 134/73 O2 Sat by Pulse Oximetry 100 Oxygen Delivery Method Oxygen Flow Rate 12/28/22 17:40 12/28/22 18:00 12/28/22 16:27 Temperature 97.8 F Pulse Rate 76 Pulse Rate [Right Radial] Respiratory Rate Blood Pressure Blood Pressure [Right Arm] O2 Sat by Pulse Oximetry 81 L Oxygen Delivery Method Room Air Oxygen Flow Rate 12/28/22 16:30 12/28/22 16:30 12/28/22 16:56 Temperature Pulse Rate 76 74 Pulse Rate [Right Radial] Respiratory Rate Blood Pressure 138/70 Blood Pressure [Right Arm] O2 Sat by Pulse Oximetry 99 100 Oxygen Delivery Method Oxygen Flow Rate 12/28/22 17:00 12/28/22 17:15 12/28/22 19:00 Temperature Pulse Rate 75 76 Pulse Rate [Right Radial] Respiratory Rate Blood Pressure Blood Pressure [Right Arm] O2 Sat by Pulse Oximetry 100 98 Oxygen Delivery Method Room Air Oxygen Flow Rate 12/28/22 19:00 12/28/22 20:00 12/28/22 20:56 Temperature Pulse Rate 82 87 Pulse Rate [Right Radial] Respiratory Rate 25 H 24 25 H Blood Pressure 133/59 148/73 Blood Pressure [Right Arm] O2 Sat by Pulse Oximetry 94 L 95 Oxygen Delivery Method Oxygen Flow Rate 12/28/22 21:26 12/28/22 21:00 12/28/22 22:00 Temperature Pulse Rate 82 87 Pulse Rate [Right Radial] Respiratory Rate 20 26 H 24 Blood Pressure 161/69 143/64 Blood Pressure [Right Arm] O2 Sat by Pulse Oximetry 96 96 Oxygen Delivery Method Oxygen Flow Rate 12/28/22 23:34 12/29/22 00:00 12/29/22 01:00 Temperature 98.2 F Pulse Rate 85 84 Pulse Rate [Right Radial] 81 Respiratory Rate 31 H 30 H 30 H Blood Pressure 147/63 140/65 Blood Pressure [Right Arm] 143/67 O2 Sat by Pulse Oximetry 94 L 94 L 95 Oxygen Delivery Method Nasal Cannula Oxygen Flow Rate 12/29/22 02:00 12/29/22 03:00 12/29/22 04:00 Temperature 98.0 F Pulse Rate Pulse Rate [Right Radial] 85 86 85 Respiratory Rate 25 H 25 H Blood Pressure Blood Pressure [Right Arm] 154/70 158/73 159/73 O2 Sat by Pulse Oximetry 94 L 94 L 94 L Oxygen Delivery Method Nasal Cannula Nasal Cannula Oxygen Flow Rate 12/29/22 05:00 12/28/22 21:56 12/29/22 06:00 Temperature Pulse Rate Pulse Rate [Right Radial] 86 87 Respiratory Rate 25 H 20 25 H Blood Pressure Blood Pressure [Right Arm] 149/56 148/67 O2 Sat by Pulse Oximetry 95 Oxygen Delivery Method Room Air Room Air Oxygen Flow Rate 12/29/22 09:05 12/29/22 07:00 12/29/22 08:00 Temperature 97.8 F Pulse Rate Pulse Rate [Right Radial] 82 83 Respiratory Rate 29 H 29 H Blood Pressure Blood Pressure [Right Arm] 152/65 179/75 O2 Sat by Pulse Oximetry 96 95 Oxygen Delivery Method Room Air Room Air Room Air Oxygen Flow Rate 12/29/22 09:00 12/29/22 10:00 12/29/22 11:24 Temperature Pulse Rate 80 Pulse Rate [Right Radial] 82 80 Respiratory Rate 26 H 28 H 17 Blood Pressure 157/73 Blood Pressure [Right Arm] 149/66 145/67 O2 Sat by Pulse Oximetry 97 95 96 Oxygen Delivery Method Room Air Room Air Room Air Oxygen Flow Rate 12/29/22 11:00 12/29/22 11:25 12/29/22 11:24 Temperature Pulse Rate Pulse Rate [Right Radial] 80 Respiratory Rate 28 H 16 16 Blood Pressure Blood Pressure [Right Arm] 142/64 O2 Sat by Pulse Oximetry 95 Oxygen Delivery Method Room Air Oxygen Flow Rate 12/29/22 13:32 12/29/22 13:42 12/29/22 13:47 Temperature 97.7 F Pulse Rate 80 79 79 Pulse Rate [Right Radial] Respiratory Rate 16 17 18 Blood Pressure 100/45 108/54 106/52 Blood Pressure [Right Arm] O2 Sat by Pulse Oximetry 96 95 96 Oxygen Delivery Method Nasal Cannula Nasal Cannula Nasal Cannula Oxygen Flow Rate 12/29/22 13:52 12/29/22 13:57 12/29/22 14:02 Temperature Pulse Rate 78 80 79 Pulse Rate [Right Radial] Respiratory Rate 18 18 17 Blood Pressure 103/55 105/52 106/52 Blood Pressure [Right Arm] O2 Sat by Pulse Oximetry 96 96 96 Oxygen Delivery Method Nasal Cannula Nasal Cannula Nasal Cannula Oxygen Flow Rate 12/29/22 13:37 12/29/22 14:15 12/29/22 14:30 Temperature 97.7 F 97.7 F Pulse Rate 79 76 75 Pulse Rate [Right Radial] Respiratory Rate 16 20 20 Blood Pressure 101/50 116/57 112/57 Blood Pressure [Right Arm] O2 Sat by Pulse Oximetry 96 98 98 Oxygen Delivery Method Nasal Cannula Oxygen Flow Rate 12/29/22 14:45 12/29/22 15:00 12/29/22 15:15 Temperature 97.7 F 97.7 F 97.7 F Pulse Rate 74 75 74 Pulse Rate [Right Radial] Respiratory Rate 20 21 20 Blood Pressure 105/50 122/54 115/56 Blood Pressure [Right Arm] O2 Sat by Pulse Oximetry 99 97 99 Oxygen Delivery Method Oxygen Flow Rate 12/29/22 15:00 12/29/22 16:00 12/29/22 17:00 Temperature 97.7 F 97.7 F Pulse Rate Pulse Rate [Right Radial] 75 73 73 Respiratory Rate 21 20 16 Blood Pressure Blood Pressure [Right Arm] 122/54 103/48 118/56 O2 Sat by Pulse Oximetry 97 99 99 Oxygen Delivery Method Room Air Room Air Room Air Oxygen Flow Rate 12/29/22 16:15 12/29/22 17:15 12/29/22 17:40 Temperature 97.7 F Pulse Rate 74 73 75 Pulse Rate [Right Radial] Respiratory Rate 20 20 20 Blood Pressure 103/48 118/56 124/56 Blood Pressure [Right Arm] O2 Sat by Pulse Oximetry 99 99 100 Oxygen Delivery Method Oxygen Flow Rate 12/29/22 18:00 12/29/22 19:00 12/29/22 20:00 Temperature 97.8 F Pulse Rate Pulse Rate [Right Radial] 85 75 86 Respiratory Rate 20 18 25 H Blood Pressure Blood Pressure [Right Arm] 124/56 103/58 125/60 O2 Sat by Pulse Oximetry 100 100 94 L Oxygen Delivery Method Room Air Room Air Oxygen Flow Rate 12/29/22 21:00 12/29/22 22:00 12/29/22 23:00 Temperature Pulse Rate Pulse Rate [Right Radial] 82 78 75 Respiratory Rate 26 H 24 18 Blood Pressure Blood Pressure [Right Arm] 136/67 108/44 109/58 O2 Sat by Pulse Oximetry 100 100 Oxygen Delivery Method Room Air Room Air Room Air Oxygen Flow Rate 12/30/22 00:00 12/30/22 01:00 12/30/22 02:00 Temperature Pulse Rate Pulse Rate [Right Radial] 74 73 76 Respiratory Rate 24 20 20 Blood Pressure Blood Pressure [Right Arm] 130/68 129/56 120/57 O2 Sat by Pulse Oximetry 99 99 99 Oxygen Delivery Method Room Air Room Air Room Air Oxygen Flow Rate 12/30/22 03:00 12/30/22 04:00 12/30/22 05:00 Temperature 99.2 F Pulse Rate Pulse Rate [Right Radial] 78 82 Respiratory Rate 24 24 26 H Blood Pressure Blood Pressure [Right Arm] 120/59 126/53 125/61 O2 Sat by Pulse Oximetry 100 99 100 Oxygen Delivery Method Room Air Room Air Room Air Oxygen Flow Rate 12/30/22 06:00 12/30/22 08:00 Temperature 98.3 F Pulse Rate Pulse Rate [Right Radial] 80 76 Respiratory Rate 24 23 Blood Pressure Blood Pressure [Right Arm] 125/66 133/61 O2 Sat by Pulse Oximetry 100 99 Oxygen Delivery Method Room Air Nasal Cannula Oxygen Flow Rate 2 Labs: Laboratory Last Values WBC 16.2 X10^3/uL (3.6-10.0) H 12/30/22 04:22 RBC 4.08 X10^6/uL (3.5-5.4) 12/30/22 04:22 Hgb 11.6 g/dL (12.0-16.0) L 12/30/22 04:22 Hct 35.9 % (36.0-47.0) L 12/30/22 04:22 MCV 88.0 fL (80.0-100.0) 12/30/22 04:22 MCH 28.4 pg (27.0-34.0) 12/30/22 04:22 MCHC 32.2 g/dL (33.0-35.0) L 12/30/22 04:22 RDW 14.1 % (11.6-16.5) 12/30/22 04:22 Plt Count 308 X10^3/uL (150.0-450.0) 12/30/22 04:22 Plt Count Comment Adequate (ADEQUATE) 12/29/22 04:15 MPV 10.4 fL (7.4-11.0) 12/30/22 04:22 Neut % (Auto) 80.8 % (42.0-75.0) H 12/30/22 04:22 Lymph % (Auto) 5.0 % (21.0-51.0) L 12/30/22 04:22 [place] % (Auto) 12.1 % (0.0-13.0) 12/30/22 04:22 Eos % (Auto) 1.8 % (0.9-2.9) 12/30/22 04:22 Baso % (Auto) 0.3 % (0.2-1.0) 12/30/22 04:22 Neut # (Auto) 13.1 x10^3/uL (2.2-4.8) H 12/30/22 04:22 Lymph # (Auto) 0.8 X10^3/uL (1.3-2.9) L 12/30/22 04:22 [place] # (Auto) 2.0 x10^3/uL (0.3-0.8) H 12/30/22 04:22 Eos # (Auto) 0.3 x10^3/uL (0.0-0.2) H 12/30/22 04:22 Baso # (Auto) 0.0 X10^3/uL (0.0-0.1) 12/30/22 04:22 Absolute Nucleated RBC 0.0 /100WBC 12/30/22 04:22 Total Counted 100 12/29/22 04:15 Neutrophils % (Manual) 84 % (39-76) H 12/29/22 04:15 Lymphocytes % (Manual) 3 % (13-43) L 12/29/22 04:15 Monocytes % (Manual) 13 % (4-9) H 12/29/22 04:15 Plt Morphology Comment Normal (NORMAL) 12/29/22 04:15 RBC Morphology Normal (NORMAL) 12/29/22 04:15 Sodium 138 mmol/L (136-145) 12/30/22 04:22 Corrected Sodium 139 mmol/L (136-145) 12/30/22 04:22 Potassium 3.5 mmol/L (3.5-5.1) 12/30/22 04:22 Chloride 108 mmol/L (98-107) H 12/30/22 04:22 Carbon Dioxide 20.8 mmol/L (21-32) L 12/30/22 04:22 BUN 5 mg/dL (7-18) L 12/30/22 04:22 Creatinine 0.54 mg/dL (0.55-1.02) L 12/30/22 04:22 Est GFR (MDRD) Af Amer > 60 (>60) 12/30/22 04:22 Est GFR (MDRD) Non-Af > 60 (>60) 12/30/22 04:22 Glucose 123 mg/dL (65-99) H 12/30/22 04:22 POC Glucose (mg/dL) 127 mg/dL (65-99) H 12/30/22 05:30 Calcium 6.4 mg/dL (8.5-10.1) L 12/30/22 04:22 Corrected Calcium 8.2 mg/dL (8.5-10.1) L 12/30/22 04:22 Magnesium 2.4 mg/dL (2.0-2.9) 12/28/22 16:05 Total Bilirubin 0.70 mg/dL (0.2-1.0) 12/30/22 04:22 AST 29 Units/L (15-37) 12/30/22 04:22 ALT 37 Units/L (12-78) 12/30/22 04:22 Alkaline Phosphatase 137 Units/L (46-116) H 12/30/22 04:22 Total Protein 5.1 g/dL (6.4-8.2) L 12/30/22 04:22 Albumin 1.8 g/dL (3.4-5.0) L 12/30/22 04:22 Globulin 3.3 g/dL (2.5-4.5) 12/30/22 04:22 Albumin/Globulin Ratio 0.5 Ratio (1.1-2.1) L 12/30/22 04:22 Lipase 24 Units/L (16-77) 12/28/22 16:05 Specimen Type Catherized urine 12/28/22 16:59 Urine Color Yellow (YELLOW) 12/28/22 16:59 Urine Appearance Clear (CLEAR) 12/28/22 16:59 Urine pH 7.0 (5.0 - 8.0) 12/28/22 16:59 Ur Specific [place] 1.015 (1.000-1.030) 12/28/22 16:59 Urine Protein 1+ (NEGATIVE) 12/28/22 16:59 Urine Glucose (UA) Negative (NEGATIVE) 12/28/22 16:59 Urine Ketones 3+ (NEGATIVE) 12/28/22 16:59 Urine Blood Negative (NEGATIVE) 12/28/22 16:59 Urine Nitrite Negative (NEGATIVE) 12/28/22 16:59 Urine Bilirubin Negative (NEGATIVE) 12/28/22 16:59 Urine Urobilinogen 2+ (NORMAL) 12/28/22 16:59 Ur Leukocyte Esterase Negative (NEGATIVE) 12/28/22 16:59 Urine RBC 0-2 /HPF (0-3) 12/28/22 16:59 Urine WBC 0-2 /HPF (0-5) 12/28/22 16:59 Ur Squamous Epith Cells Rare /HPF (NEGATIVE) 12/28/22 16:59 Urine Bacteria Negative /HPF (NEGATIVE) 12/28/22 16:59 Hyaline Casts Few /LPF (NEGATIVE) 12/28/22 16:59 Urine Mucus Many /HPF (NEGATIVE) 12/28/22 16:59 Ur Culture Indicated? No/not indicated 12/28/22 16:59 Reason For Visit: ACUTE CHOLECYSTITIS Discharge Date Discharge Date: 12/30/22 Discharge Diagnosis All Active Problems (Updated 12/29/22 @ 08:05 by Pancho Mcmanus) Parkinsons disease (Acute) Acute flank pain (Acute) HTN (hypertension) (Acute) Acute cholecystitis (Acute) Osteoarthritis of left knee (Acute) Hypertension (Chronic) GERD (gastroesophageal reflux disease) (Chronic) History of diverticulosis (Chronic) Arthritis (Chronic) Depression (Chronic) Pneumonia due to COVID-19 virus (Acute) Plan of Treatment: Continue with present treatment and follow up plan. Pt is to keep follow up appointment as instructed and take medications as ordered. Discharge Medications Discharge Medications: No Known Drug Allergies Allergy (Verified 01/18/20 13:08) CONTINUE taking the following medications amlodipine 10 mg tablet 10 mg PO QDAY 12/28/22 [History] estradiol 1 mg tablet 1 mg PO QDAY 12/28/22 [History] ibandronate 150 mg tablet 150 mg PO MONTHLY 12/28/22 [History] medroxyprogesterone 2.5 mg tablet 2.5 mg PO QDAY 12/28/22 [History] zolpidem 5 mg tablet 5 mg PO QPM PRN 12/28/22 [History] Discharge Disposition Assessment: No acute distress noted at discharge. Discharge Plan Discharge Plan Hospital Course: Patient is a 62-year-old female with a past medical history of hypertension, Parkinson's disease, arthritis, admitted for acute cholecystitis. Her hospital/treatment course included: IV fluids D5 half-normal saline at 125 mL/h, continue with IV antibiotics Zosyn every 8 hours. General surgery was consulted and patient had cholecystectomy. Pt did well post-op and symptoms significantly improved. Pt discharged in stable condition. Rx cipro. Instructed to follow up with pcp and general surgery in 1 week. Patient Disposition: HOME HEALTH SERVICE Condition: Stable Health Concerns: Post Hospitalization: new medications and changes needed to prevent readmission or further decline. Pt educated and given instructions on all concerns. Care Plan Goals: Problem: Pain/Alteration in Comfort Goal: Improve/ Resolve Pain; Achieve Pain Tolerance Instructions: Take pain medications as prescribed. Contact your primary care provider if your pain is unrelieved or worsens. Follow up with primary care provider as directed. Plan of Treatment: Continue with present treatment and follow up plan. Pt is to keep follow up appointment as instructed and take medications as ordered. Assessment: No acute distress noted at discharge. Prescriptions: New hydrocodone-acetaminophen 5-325 mg Tablet 1 tab PO Q4H MDD 6 PRNQty: 20 0RF ciprofloxacin HCl [Cipro] 500 mg Tablet 500 mg PO BID Qty: 14 0RF ondansetron 4 mg Tablet,Disintegrating 4 mg PO Q6H PRNQty: 20 0RF No Action citalopram 20 MG tablet 20 mg PO DAILY metoprolol tartrate 50 MG tablet 50 mg PO BID gabapentin 300 MG capsule 300 mg PO HS Ergocalciferol [Vitamin D] 50,000 UNT Cap 1 tab PO WEEKLY Potassium Chloride [Klor-Con 10 (10 mEQ)] 10 MEQ Tab 10 meq PO BID diclofenac sodium 75 mg tablet,delayed release (DR/EC) 75 mg PO BID Patient Comments: 1 tablet,delayed release (DR/EC) BID Take with food medroxyprogesterone 2.5 mg tablet 2.5 mg PO QDAY estradiol 1 mg tablet 1 mg PO QDAY amlodipine 10 mg tablet 10 mg PO QDAY zolpidem 5 mg tablet 5 mg PO QPM PRN ibandronate 150 mg tablet 150 mg PO MONTHLY Follow ups/Referrals Follow ups/Referrals: DARSHANA MORENO [STAFF PHYSICIAN] - 01/11/23 9:30 am LEANDRO CASH [Primary Care Provider] - 01/03/23 2:00 pm Instructions Instructions: Laparoscopic Cholecystectomy, Care After, Pain Relief Before and After Surgery, How to Use an Incentive Spirometer, How to Change Your Wound Dressing, [id number], Sutures, [place], or Adhesive Wound Closure, [id number], Preventing Problems After Surgery, How to Prevent Constipation After Surgery Activity Restrictions/Additional Instructions: Low fat soft diet as tolerated. You may see some drainage from where the drain was removed and that is normal. You can remove the dressings on Tuesday and shower. You will have isiah. Wash with soap and water and pat dry. Monitor incisions for signs of infection which are increased redness, pain or drainage. You may apply a light dressing as needed for comfort. Contact Dr. Moreno with any concerns. Use incentive spirometer every hour while awake. You need to be up walking and moving to help prevent blood clots and pneumonia. Every hour while awake use the incentive spirometer, walk to the bathroom and take deep breaths. If you have any increased shortness of breath, chest pain or pain in the legs contact Dr. Moreno or go to the emergency room for evaluation if after office hours. Take pain medication as directed for pain control. Pain medication may cause constipation if you have this you can take an over the counter stool softener and drink water. Follow up with Dr. Moreno and Dayana Marie as scheduled. Stand Alone Forms: [facility] Follow Up Care
== END 2022-12-30 14:00 | disposition home health service (06) ==
LOC: ICU 14:38 → ER 14:38 → ICU 17:33
PROVIDERS: ADMIT Family Medicine; ATTEND Family Medicine